=== PATIENT | female | born 1980 | race Caucasian/White ===

== ENCOUNTER 2020-01-01 15:32 | Emergency (ER) | payer MEDICAID, SELFPAY ==
[2020-01-01 15:36] VITALS: BP 115/65; PULSE 101; RESP 18; TEMP 37; O2SAT 98; BMI 21.2
--- NOTE | 2020-01-01 16:11 | CA_ITS ---
APPROVED REPORT Left Lower Extremity Venous Study for DVT. Host/Hostess Head: TRACIE Indications Lower Extremity Pain: Lower Extremity Edema: Left Current Smoker LLE swelling. Patient states that her left leg began swelling several days ago. Yesterday (12/31/19) patient stepped on a pair of tweezers that caused a laceration to the left foot with blood present. She states the swelling in the leg has increased since this injury. Risk Factors Current Smoker Vein Imaging CFV (L): compressive, spontaneous, phasic, augmentation FEM (L): compressive, spontaneous, phasic, augmentation POP (L): compressive, spontaneous, phasic, augmentation PTV (L): Compressible GSV (L): compressive, spontaneous, phasic, augmentation SSV (L): Compressible Peroneals (L):Compressible GAS (L): Compressible Conclusion No evidence of DVT or superficial thrombophlebitis in the veins scanned of the left lower extremity. Enlarged groin lymph nodes noted incidentally. Electronically signed by : Jerardo Castle MD 01/02/2020 18:29:02
--- NOTE | 2020-01-01 16:16 | XR_ITS ---
PROCEDURE: XR FOOT LT 2V CLINICAL INDICATION: trauma, swelling Pain and swelling COMPARISON: No exams were available for comparison FINDINGS: No fracture or dislocation. No lytic or blastic change. There is normal mineralization. The joint spaces are well-preserved. No significant degenerative/arthritic changes. No erosive changes evident. Other findings:Mild soft tissue swelling. No radiopaque foreign body IMPRESSION: Mild soft tissue swelling otherwise negative Dictated by: Jerardo Castle MD 01/02/2020 08:34 Electronically signed by Jerardo Castle MD in [place] 01/02/2020 08:34
--- NOTE | 2020-01-01 16:22 | HMH.EDGENADL ---
ED Disposition Clinical Impression: Cellulitis of foot, left, Puncture wound Disposition: Home, Self-Care Condition on Discharge: Good Instructions: DI for Cellulitis -- Adult Additional Instructions: You have been evaluated for pain and swelling to your left leg, diagnosed with cellulitis. Please take Keflex as prescribed. Take Tylenol and ibuprofen for pain. Follow-up with your primary care doctor this week. Follow-up for results of syphilis and gonorrhea testing. Return to the emergency department if you have new or worsening symptoms, worsening pain, swelling, fevers, chills. Prescriptions: cephALEXin [Cephalexin 500mg Tab] 500 mg PO QID 7 Days #28 tab Prescription Printed Referrals: Provider,MD Delphine [Primary Care Provider] - Isaak Garcia MD [Staff Physician] - Time of Disposition: 18:07 - Critical Care Critical Care Time: No Attestation: On 01/01/20, the high probability of a clinically significant, sudden or life threatening deterioration of the following system(s) required my full and direct attention, intervention and personal management. The time I documented below is in addition to time spent performing reported procedures but includes the following listed in this critical care notation. Medical Decision Making - Alexis Inquiry Pt receiving controlled substance: No Vital Signs: 01/01/20 15:36 01/01/20 18:58 Temperature 98.6 F 98.6 F Temperature Source Oral Oral Pulse Rate 100 H Pulse Rate [Right Radial] 101 H Respiratory Rate 18 18 Blood Pressure 113/73 Blood Pressure [Right Arm] 115/65 Blood Pressure Mean [Right Arm] 81 Blood Pressure Source Automatic Cuff Blood Pressure Source [Right Arm] Automatic Cuff Blood Pressure Position Sitting Blood Pressure Position [Right Arm] Sitting 02 Sat by Pulse Oximetry 98 Oxygen Delivery Method Room Air Room Air - Lab Data Lab Results 01/01/20 16:44: WBC 6.3, RBC 3.77 L, Hgb 12.1 L, Hct 36.2 L, MCV 96.2, MCH 32.2 H, MCHC 33.5, RDW 14.8, Plt Count 230, MPV 8.7, Neut % (Auto) 51.2, Lymph % (Auto) 33.8, Taylor % (Auto) 5.9, Eos % (Auto) 8.6, Baso % (Auto) 0.4, Neut # (Auto) 3.2, Lymph # (Auto) 2.1, Taylor # (Auto) 0.4, Eos # (Auto) 0.5 H, Baso # (Auto) 0.0 01/01/20 16:44: C-Reactive Protein 22.9 H 01/01/20 17:14: Urine Color Yellow, Urine Appearance Clear, Urine pH 6.0, Ur Specific Joshua 1.020, Urine Protein Negative, Urine Glucose (UA) Negative, Urine Ketones Trace, Urine Blood Negative, Urine Nitrate Negative, Urine Bilirubin Negative, Urine Urobilinogen 0.2, Ur Leukocyte Esterase Negative, Urine WBC 3-5, Ur Squamous Epith Cells 5-10, Urine Bacteria Trace 01/01/20 17:14: Urine HCG, Qual Negative Result diagrams: 01/01/20 16:44 Orders (Tests/Meds): ED MEDICATIONS Discontinued Medications Generic Name Dose Route Start Last Admin Trade Name Freq PRN Reason Stop Dose Admin Tetanus/Reduced Diphtheria/Acell Pertussis 0.5 ml 01/01/20 16:29 01/01/20 17:48 Adacel Tdap 0.5ml Syringe IM 01/01/20 16:30 0.5 ml .ONCE ONE Administration ORDERS Category Date Time Status Foot XR left 2 views [XR foot LT 2V] Stat Exams 01/01/20 16:16 Taken Treponema pallidum Antibodies Routine Lab 01/01/20 16:44 Received Medical Decision Narrative: In summary this is a 39-year-old female presenting to the emergency department with uniform swelling to her left foot, pain, swelling. She has a puncture wound to the bottom of the foot, concerning for a soft tissue injury and now infection. I also concern for osteomyelitis. Given that her swelling started before the injury I also have concern for DVT. Plan to obtain CBC, CRP, x-ray of the left foot, DVT ultrasound of the left lower extremity. Given that patient has lesions and her partner does as well, will screen for gonorrhea and secondary syphilis. Tetanus updated. Initial laboratory results remarkable for white count of 11. CRP elevated at 22. Other laboratory results are gen
--- NOTE | 2020-01-01 16:52 | PC.NURSE ---
CV lab staff at for doppler
--- NOTE | 2020-01-01 17:04 | PC.NURSE ---
Pt to rad.
[2020-01-01 17:08] LABS: Basophils % 0.4 % (0.1-2.0); Eosinophils # 0.5 K/mm3 (0.0-0.4); Eosinophils % 8.6 % (0.1-12.0); Hematocrit 36.2 % (37.0-47.0); Hemoglobin 12.1 g/dL (12.2-16.2); Lymphocytes # 2.1 K/mm3 (0.7-4.5); Lymphocytes % 33.8 % (10-50); Mean Corpuscular HGB Conc 33.5 g/dL (31.8-35.4); Mean Corpuscular Hemoglobin 32.2 pg (27.0-31.2); Mean Corpuscular Volume 96.2 fl (81-99); Mean Platelet Volume 8.7 fl (7.4-10.4); Monocytes # 0.4 K/mm3 (0.1-1.0); Monocytes % 5.9 % (1.7-9.3); Neutrophils # 3.2 K/mm3 (1.8-7.8); Neutrophils % 51.2 % (37.0-80.0); Platelet Count 230 K/mm3 (142-424); Red Blood Count 3.77 M/mm3 (4.20-5.40); Red Cell Distribution Width 14.8 % (11.5-17.5); White Blood Count 6.3 K/mm3 (4.8-10.8)
[2020-01-01 17:16] LABS: C-Reactive Protein 22.9 mg/L (0-4)
[2020-01-01 17:19] LABS: Microscopic, Urine URINE MICROSCOPIC (MICROSCOPIC)
[2020-01-01 17:22] LABS: Appearance,Urine CLEAR (Clear); Bilirubin,Urine Negative (Negative); Blood, Urine Negative (Negative); Color,Urine YELLOW (Yellow); Glucose,Urine (UA) Negative (Negative); Ketones,Urine TRACE (Negative); Leukocyte Esterase,Urine Negative (Negative); Nitrate,Urine Negative (Negative); Protein,Urine Negative (Negative); Urobilinogen,Urine 0.2 EU/dl (0.2)
[2020-01-01 17:25] LABS: Urine Pregnancy, HCG Qual. Negative (Negative)
[2020-01-01 17:39] LABS: Bacteria,Urine Trace /lpf
[2020-01-01 18:58] VITALS: BP 113/73; PULSE 100; RESP 18; TEMP 37; O2SAT 100
[2020-01-03 17:10] LABS: Treponema pallidum Antibodies Non Reactive (Non Reactive)
[2020-01-07 10:36] LABS: Neisseria gonorrhoeae, NAA Negative (Negative)
== END 2020-01-01 18:58 | disposition home or self-care (01) ==
PROVIDERS: Emergency Provider Emergency Medicine
DX: L03.116 Cellulitis of left lower limb (principal); F17.210 Nicotine dependence, cigarettes, uncomplicated
CPT/HCPCS: 73620; 81001; 81025; 85025; 86140; 86780; 87491; 87591; 90471; 90715; 93971; 99283

== ENCOUNTER 2020-10-09 19:19 | Emergency (ER) | payer MEDICAID, SELFPAY ==
[2020-10-09 19:14] VITALS: BP 141/98; PULSE 89; RESP 16; TEMP 36.7; O2SAT 100
--- NOTE | 2020-10-09 19:45 | HMH.EDOD ---
ED Disposition Clinical Impression: Heroin overdose Disposition: Still a Patient Condition on Discharge: Good Referrals: PCP,No [Primary Care Provider] - - Critical Care Critical Care Time: No Attestation: On 10/09/20, the high probability of a clinically significant, sudden or life threatening deterioration of the following system(s) required my full and direct attention, intervention and personal management. The time I documented below is in addition to time spent performing reported procedures but includes the following listed in this critical care notation. Medical Decision Making - Medical Records Medical records reviewed: Yes: I reviewed the patient's medical records. - Alexis Inquiry Pt receiving controlled substance: No Vital Signs: 10/09/20 19:14 Temperature 98.0 F Temperature Source Oral Pulse Rate [Left Radial] 89 Respiratory Rate 16 Blood Pressure [Right Arm] 141/98 H Blood Pressure Mean [Right Arm] 112 Blood Pressure Source [Right Arm] Automatic Cuff Blood Pressure Position [Right Arm] Supine 02 Sat by Pulse Oximetry 100 Oxygen Delivery Method Room Air Medical Decision Narrative: 39-year-old female with heroin overdose tonight. It is now immediately resolved after 2 mg of Narcan. She is awake and alert with normal neurological exam sitting comfortably in the exam room. No other concern at this point that she use anything besides heroin. She arrived just before shift change plan to observe her for an hour and then discharge her home Overdose HPI - General Chief Complaint: Overdose Stated Complaint: OD Time Seen by Provider: 10/09/20 19:20 Mode of Arrival: EMS Limitations: No Limitations Description of Symptoms (Recalled from ER Triage Doc. by RN): Per EMS pt was given 2mg carcan on sight and pt became alert. She states she used heroin by injection. She has no complaints at this time. A&Ox4. - History of Present Illness HPI Narrative: 89-year-old female used heroin tonight. EMS said they arrived and she was initially unresponsive however after 2 mg of Narcan she awoke immediately and she has been having alert since then. No chest pain abdominal pain nausea vomiting or any other concerns. At this point her main concern is that she needs to find her so she wants to call the police to do that. She denies using any other medication besides heroin tonight - Related Data Home Medications Medication Instructions Recorded Confirmed No Known Home Medications 10/09/20 10/09/20 Allergies Allergy/AdvReac Type Severity Reaction Status Date / Time NO KNOWN ALLERGIES Allergy Uncoded 07/11/17 15:08 [facility] History - Hepatitis A Screen Drug use history?: Yes High risk sexual behaviors?: No History of sexually transmitted infection?: No Currently employed?: No Childcare worker?: No Do you have indoor plumbing?: Yes Do you have electricity?: Yes Attestation statement:: This patient has been screened for Hepatitis A risk factors. Medical History: Denies:: Diabetes Mellitus Type 1, Diabetes Mellitus Type 2 - Social History Smoking Status: Current every day smoker # Packs/Day (cigarettes): 1 Alcohol Intake: never Occupational Status: unemployed ROS Obtained: Yes All systems reviewed & no additional complaints - Constitutional Constitutional: Denies body ache, Denies chills, Denies fever(s) - Eyes Eyes: Denies blurry vision - ENT Ears, Nose, Mouth, and Throat: Denies dizziness - Cardiovascular Cardiovascular: Denies chest pain - Respiratory Respiratory: Denies shortness of breath - Gastrointestinal Gastrointestingal: Denies: abdominal pain - Musculoskeletal Musculoskeletal: Denies abnormal gait, Denies muscle cramps - Integumentary/Breasts Skin/Breast: Denies rash - Neurologic Neurologic: Denies abnormal gait, Denies numbness Physical Exam - General General appearance: alert, in no apparent distress - Head Head exam: atraumatic
[2020-10-09 19:51] VITALS: BP 137/95; PULSE 76; RESP 16; TEMP 36.7; O2SAT 99
== END 2020-10-09 19:54 | disposition left against medical advice (07) ==
PROVIDERS: Emergency Provider Emergency Medicine
DX: T40.1X1A Poisoning by heroin, accidental (unintentional), initial encounter (principal)
CPT/HCPCS: 99281

== ENCOUNTER 2023-01-07 11:27 | Emergency (ER) | payer MEDICAID, SELFPAY ==
[2023-01-07 11:28] VITALS: BP 108/61; PULSE 79; RESP 16; TEMP 37; O2SAT 98; BMI 24.2
[2023-01-07 11:35] VITALS: BP 108/61; PULSE 76; RESP 16; O2SAT 96
--- NOTE | 2023-01-07 11:40 | HMH.EDGENADL ---
Discharge Plan Disposition Patient Disposition: Home, Self-Care Condition: Good Prescriptions Prescriptions: No Action No Known Home Medications Referrals Follow up/Referrals: Isaak Garcia MD [Staff Physician] - See instructions Provider,MD Delphine [Primary Care Provider] - See instructions Activity Restrictions/Add. Instructions Additional Instructions/Restrictions: You have been evaluated for vaginal discharge, concern for sexually transmitted infections. We have sent swabs for the most common types of infections. Please follow-up with your primary care doctor for the results. Avoid sexual intercourse until you and partners are tested and treated. Return to the emergency department at once for any new or worsening symptoms Clinical Impressions Clinical Impression: Vaginal discharge, Encounter for assessment of STD exposure Discharge ED Provider: Daphne Ferrara Adult HPI General Chief complaint: Urogenital-Female Stated complaint: wants to be tested for STD Time Seen by Provider: 01/07/23 11:32 History of Present Illness HPI narrative: 42-year-old female presenting to the emergency department with vaginal discharge, concern for sexually transmitted infections. Symptoms started 2 to 3 days ago. She had itching, discomfort in her vaginal area. She noticed whitish discharge. Does not have a particular smell. She feels like her genital area is irritated. Feels like she may have a rash. She was sexually active about 1 month ago. Denies recent sexual intercourse. She was tested for sexually transmitted infections about 6 months ago. She has never been diagnosed with gonorrhea, chlamydia, HIV, syphilis, any other sexually transmitted infections. She denies concern for Related Data Home Medications Medication Instructions Recorded Confirmed No Known Home Medications 10/09/20 10/09/20 Allergies Allergy/AdvReac Type Severity Reaction Status Date / Time NO KNOWN ALLERGIES Allergy Uncoded 07/11/17 15:08 [facility] Disclaimer: The information contained in this section may have been updated after the patient was seen, as this information can be updated by other users. Social History Smoking Status: Current every day smoker alcohol intake: never current occupational status: unemployed Travel in the last 8 weeks: None ROS Obtained: Yes All systems reviewed & no additional complaints except as documented Constitutional Constitutional: Denies fatigue, Denies fever(s), Denies headache(s) and Denies weakness ENT Ears, Nose, Mouth, and Throat: Denies headache(s) Gastrointestinal Gastrointestingal: Denies abdominal pain, nausea or vomiting Genitourinary Female Genitourinary: Reports dysuria, Denies hematuria, Reports vaginal discharge and Reports vaginal odor Integumentary/Breasts Skin/Breast: Denies redness and Denies rash Neurologic Neurologic: Denies headache(s) and Denies weakness Endocrine Endocrine: Denies fatigue Physical Exam General General appearance: alert and in no apparent distress Eye Eye exam: Present normal appearance; Absent conjunctival redness Respiratory Respiratory exam: Present normal lung sounds bilaterally; Absent respiratory distress or wheezes Cardiovascular Cardiovascular exam: Present regular rate and normal rhythm Abdominal Exam Abdominal exam: Present soft; Absent distention or tenderness Neurological Exam Neurological exam: Present alert and oriented X3 Skin Skin exam: Present warm and dry Medical Decision Making Medical Records Medical records reviewed: Yes I reviewed the patient's medical records. Alexis Inquiry Pt receiving controlled substance: No Vital Signs: 01/07/23 11:28 01/07/23 11:35 Temperature 98.6 F Temperature Source Oral Pulse Rate 76 Pulse Rate [Right] 79 Respiratory Rate 16 16 Blood Pressure 108/61 L Blood Pressure [Right Arm] 108/61 L Blood Pressure Mean 71 Blood Pressure Mean [Ri
[2023-01-07 11:52] LABS: Microscopic, Urine URINE MICROSCOPIC (MICROSCOPIC)
[2023-01-07 11:56] LABS: Appearance,Urine CLEAR (Clear); Blood, Urine Negative (Negative); Color,Urine YELLOW (Yellow); Glucose,Urine (UA) Negative (Negative); Ketones,Urine Negative (Negative); Leukocyte Esterase,Urine 1+ (Negative); Nitrate,Urine Negative (Negative); PH,Urine 6.5 (5.0-8.5); Protein,Urine 1+ (Negative); Specific Gravity, Urine 1.025 (1.005-1.030)
[2023-01-07 12:04] LABS: Bilirubin,Urine Negative (Negative)
[2023-01-07 12:20] LABS: Bacteria,Urine 4+ /lpf
--- NOTE | 2023-01-07 12:47 | PC.NURSE ---
MD at bedside performing pelvic exam. NCT present.
[2023-01-07 12:57] LABS: Urine Pregnancy, HCG Qual. Negative (Negative)
[2023-01-07 13:23] VITALS: BP 101/70; PULSE 73; RESP 18; TEMP 37; O2SAT 96
[2023-01-09 21:08] LABS: Neisseria gonorrhoeae, NAA Negative (Negative)
== END 2023-01-07 13:22 | disposition home or self-care (01) ==
PROVIDERS: Emergency Provider Emergency Medicine
DX: N89.8 Other specified noninflammatory disorders of vagina (principal); F17.200 Nicotine dependence, unspecified, uncomplicated
CPT/HCPCS: 81001; 81025; 87086; 87491; 87591; 99284

== ENCOUNTER → 2023-01-25 13:37 | Outpatient (CLI) | payer MEDICAID, SELFPAY ==
[2023-01-25 13:01] LABS: Basophils % 0.8 % (0.1-2.0); Eosinophils # 0.2 K/mm3 (0.0-0.4); Eosinophils % 2.8 % (0.1-12.0); Hematocrit 43.2 % (37.0-47.0); Hemoglobin 14.4 g/dL (12.2-16.2); Lymphocytes # 1.9 K/mm3 (0.7-4.5); Mean Corpuscular HGB Conc 33.3 g/dL (31.8-35.4); Mean Corpuscular Hemoglobin 29.9 pg (27.0-31.2); Mean Corpuscular Volume 89.9 fl (81-99); Mean Platelet Volume 10.7 fl (7.4-10.4); Monocytes # 0.4 K/mm3 (0.1-1.0); Monocytes % 7.6 % (1.7-9.3); Neutrophils % 54.7 % (37.0-80.0); Platelet Count 236 K/mm3 (142-424); Red Blood Count 4.81 M/mm3 (4.20-5.40); Red Cell Distribution Width 13.4 % (11.5-17.5); White Blood Count 5.5 K/mm3 (4.8-10.8)
[2023-01-25 13:48] LABS: Alanine Aminotransferase 23 U/L (12-78); Albumin Level 4.5 g/dl (3.5-5.0); Albumin/Globulin Ratio 1.5 (1.1-1.8); Alkaline Phosphatase 55 U/L (38-126); Anion Gap 15.3 mEq/L (5-15); Aspartate Amino Transferase 32 U/L (14-36); Bilirubin,Total 0.3 mg/dl (0.2-1.3); Blood Urea Nitrogen 10 mg/dl (7-17); Calcium 9.5 mg/dl (8.4-10.2); Carbon Dioxide 25 mmol/L (22.0-30.0); Chloride 103 mmol/L (98-107); Chol/HDL Ratio 4.6 (1-3.5); Cholesterol 211 mg/dl (140-200); Estimated Glomerular Filt Rate 69 ml/min (>60); GFR (African American) 84 ML/MIN (>60); Globulin 3.1 g/dL (1.3-3.2); Glucose 79 mg/dl (74-100); HDL Cholesterol 46 mg/dl (40-60); Potassium 4.3 mmoL/L (3.5-5.1); Sodium 139 mmol/L (136-145); Total Protein,Serum 7.6 g/dl (6.3-8.2); Triglycerides 132 mg/dl (30-150); VLDL Cholesterol 26 mg/dL (0-40)
[2023-01-25 13:59] LABS: Direct LDL Cholesterol 114.59 mg/dL (100-129)
[2023-01-25 14:04] LABS: 25-OH Vitamin D, Total 30.5 ng/mL (30-100); T4 (Thyroxine) 9.5 ug/dl (5.53-11.0)
[2023-01-25 14:18] LABS: Thyroid Stimulating Hormone 0.86 uIU/mL (0.465-4.68)
== END ==
PROVIDERS: PCP Emergency Medicine; Visit Provider Emergency Medicine
DX: Z86.19 Personal history of other infectious and parasitic diseases (principal); Z79.899 Other long term (current) drug therapy
CPT/HCPCS: 80053; 80061; 82306; 84436; 84443; 85025; 87522; 87902

== ENCOUNTER → 2023-06-07 08:53 | Outpatient (CLI) | payer MEDICAID, SELFPAY ==
[2023-06-07 20:28] LABS: Alanine Aminotransferase 17 U/L (12-78); Albumin Level 4.2 g/dl (3.5-5.0); Albumin/Globulin Ratio 1.4 (1.1-1.8); Alkaline Phosphatase 52 U/L (38-126); Anion Gap 15.7 mEq/L (5-15); Aspartate Amino Transferase 32 U/L (14-36); Bilirubin,Total 0.3 mg/dl (0.2-1.3); Blood Urea Nitrogen 9 mg/dl (7-17); Calcium 9.5 mg/dl (8.4-10.2); Carbon Dioxide 24 mmol/L (22.0-30.0); Chloride 103 mmol/L (98-107); Chol/HDL Ratio 4.5 (1-3.5); Cholesterol 192 mg/dl (140-200); Estimated Glomerular Filt Rate 93 ml/min (>60); GFR (African American) 112 ML/MIN (>60); Globulin 3.1 g/dL (1.3-3.2); Glucose 73 mg/dl (74-100); HDL Cholesterol 43 mg/dl (40-60); Potassium 4.7 mmoL/L (3.5-5.1); Sodium 138 mmol/L (136-145); Total Protein,Serum 7.3 g/dl (6.3-8.2); Triglycerides 108 mg/dl (30-150); VLDL Cholesterol 22 mg/dL (0-40)
[2023-06-07 20:40] LABS: Direct LDL Cholesterol 118.72 mg/dL (100-129)
[2023-06-07 20:49] LABS: 25-OH Vitamin D, Total 26.4 ng/mL (30-100)
[2023-06-07 20:54] LABS: HCG,Quantitative < 2 mIU/ml (0-5.42)
[2023-06-07 20:58] LABS: Thyroid Stimulating Hormone 0.56 uIU/mL (0.465-4.68)
[2023-06-07 21:17] LABS: Vitamin B12 494 pg/mL (239-931)
[2023-06-07 22:04] LABS: Basophils # 0.1 K/mm3 (0-0.2); Basophils % 0.7 % (0.1-2.0); Eosinophils # 0.1 K/mm3 (0.0-0.4); Hematocrit 42.5 % (37.0-47.0); Hemoglobin 14.6 g/dL (12.2-16.2); Lymphocytes # 2.4 K/mm3 (0.7-4.5); Lymphocytes % 35.7 % (10-50); Mean Corpuscular HGB Conc 34.4 g/dL (31.8-35.4); Mean Corpuscular Hemoglobin 32.6 pg (27.0-31.2); Mean Corpuscular Volume 94.9 fl (81-99); Mean Platelet Volume 11.8 fl (7.4-10.4); Monocytes # 0.3 K/mm3 (0.1-1.0); Monocytes % 5.1 % (1.7-9.3); Neutrophils # 3.7 K/mm3 (1.8-7.8); Neutrophils % 56.5 % (37.0-80.0); Platelet Count 213 K/mm3 (142-424); Red Blood Count 4.48 M/mm3 (4.20-5.40); Red Cell Distribution Width 13.7 % (11.5-17.5); White Blood Count 6.6 K/mm3 (4.8-10.8)
[2023-06-09 12:19] LABS: Estradiol 17.1 pg/mL (.); FSH 5.5 mIU/mL (.); LH 1.1 mIU/mL (.); Testosterone,Total <3 ng/dL (8-60)
[2023-06-12 13:30] LABS: Estrogen 53 pg/mL (.)
[2023-06-13 22:06] LABS: Anti Mullerian Hormone (AMH) 1.25
== END ==
PROVIDERS: PCP Emergency Medicine; Visit Provider Physician Assistant
DX: N92.6 Irregular menstruation, unspecified (principal); E55.9 Vitamin D deficiency, unspecified; Z68.21 Body mass index [BMI] 21.0-21.9, adult
CPT/HCPCS: 80053; 80061; 82306; 82397; 82607; 82670; 82672; 83001; 83002; 84403; 84443; 84702; 85025

== ENCOUNTER 2024-06-13 15:28 | Outpatient (CLI) | payer MEDICAID, SELFPAY ==
[2024-06-13 16:08] LABS: Basophils # 0.1 K/mm3 (0-0.2); Basophils % 1.7 % (0.1-2.0); Eosinophils # 0.1 K/mm3 (0.0-0.4); Eosinophils % 1.1 % (0.1-12.0); Hematocrit 44.5 % (37.0-47.0); Hemoglobin 15.5 g/dL (12.2-16.2); Lymphocytes # 2.5 K/mm3 (0.7-4.5); Mean Corpuscular HGB Conc 34.7 g/dL (31.8-35.4); Mean Corpuscular Hemoglobin 31.4 pg (27.0-31.2); Mean Corpuscular Volume 90.5 fl (81-99); Mean Platelet Volume 9.3 fl (7.4-10.4); Monocytes # 0.3 K/mm3 (0.1-1.0); Monocytes % 4.8 % (1.7-9.3); Neutrophils # 3.9 K/mm3 (1.8-7.8); Neutrophils % 56.4 % (37.0-80.0); Platelet Count 211 K/mm3 (142-424); Red Blood Count 4.92 M/mm3 (4.20-5.40); Red Cell Distribution Width 13.5 % (11.5-17.5); White Blood Count 6.9 K/mm3 (4.8-10.8)
[2024-06-13 16:27] LABS: Albumin Level 4.8 g/dl (3.5-5.0); Chloride 103 mmol/L (98-107); Potassium 4.8 mmoL/L (3.5-5.1); Sodium 138 mmol/L (136-145)
[2024-06-13 16:30] LABS: Alanine Aminotransferase 18 U/L (12-78); Albumin/Globulin Ratio 1.5 (1.1-1.8); Alkaline Phosphatase 65 U/L (38-126); Anion Gap 13.8 mEq/L (5-15); Aspartate Amino Transferase 32 U/L (14-36); Bilirubin,Total 0.5 mg/dl (0.2-1.3); Blood Urea Nitrogen 16 mg/dl (7-17); Calcium 9.8 mg/dl (8.4-10.2); Carbon Dioxide 26 mmol/L (22.0-30.0); Cholesterol 194 mg/dl (140-200); Estimated Glomerular Filt Rate 92 ml/min (>60); GFR (African American) 112 ML/MIN (>60); Globulin 3.2 g/dL (1.3-3.2); Glucose 93 mg/dl (74-100); HDL Cholesterol 65 mg/dl (40-60); Triglycerides 101 mg/dl (30-150); VLDL Cholesterol 20 mg/dL (0-40)
[2024-06-13 16:45] LABS: Direct LDL Cholesterol 108.22 mg/dL (100-129)
[2024-06-13 16:48] LABS: Triiodothryronine (T3) Uptake 34 % (23.5-40.5)
[2024-06-13 17:26] LABS: HIV (1&2) Antibody Rapid NONREACTIVE (NONREACTIVE)
[2024-06-13 17:54] LABS: Free Thyroxine Index 3.4 ug/dL (5.93-13.13); T4 (Thyroxine) 9.9 ug/dl (5.53-11.0)
[2024-06-13 17:59] LABS: 25-OH Vitamin D, Total 46.1 ng/mL (30-100)
[2024-06-13 18:06] LABS: Hemoglobin A1C 5.1 % (4.0-6.0)
[2024-06-13 18:08] LABS: Thyroid Stimulating Hormone 0.91 uIU/mL (0.465-4.68)
[2024-06-17 14:11] LABS: HBsAg Screen Negative (Negative); HCV Ab Reactive (Non Reactive); Hep A Ab, IGM Negative (Negative); Hep B Core Ab, IgM Negative (Negative)
== END 2024-06-13 23:59 | disposition home or self-care (01) ==
LOC: LAB 15:29
PROVIDERS: PCP Family Medicine; Visit Provider Family Medicine
DX: Z13.9 Encounter for screening, unspecified (principal)
CPT/HCPCS: 36415; 80050; 80053; 80061; 80074; 82306; 83036; 84436; 84443; 84479; 85025; 87389

== ENCOUNTER 2024-07-19 09:40 | Emergency (ER) | payer MEDICAID, SELFPAY ==
[2024-07-19 09:41] VITALS: BP 132/73; PULSE 82; RESP 18; TEMP 36.6; O2SAT 98; BMI 17.7
[2024-07-19] MEDS: IPRATROPIUM/ALBUTEROL 3 ML NEB 9 ML IH (09:50)
[2024-07-19] MEDS: DEXAMETHASONE 4MG TABLET 10 MG PO (09:50)
[2024-07-19 09:52] LABS: Coronavirus 19, PCR Not Detected (NotDetected); Influenza A, PCR Not Detected (NotDetected); Influenza B, PCR Not Detected (NotDetected)
--- NOTE | 2024-07-19 09:59 | PC.NURSE ---
DR GUADARRAMA AT BEDSIDE
[2024-07-19 10:00] VITALS: BP 129/78; PULSE 84; RESP 18; O2SAT 100
--- NOTE | 2024-07-19 10:03 | XR_ITS ---
FINAL REPORT CLINICAL HISTORY: Shortness of breath, productive cough COMPARISON: None FINDINGS: The heart size is normal. The mediastinum is normal. There is no focal infiltrate or edema. There are no pleural effusions. There is no pneumothorax. There is no osseous abnormality. IMPRESSION: No acute cardiopulmonary process Reviewed, Interpreted and Dictated by Rehan Landeros MD Transcribed by Rekha Cole Authenticated and [facility]
--- NOTE | 2024-07-19 10:12 | HMH.EDGENADL ---
Discharge Plan Disposition Patient Disposition: Home, Self-Care Prescriptions Prescriptions: New prednisone 20 mg tablet 40 mg PO DAILY 5 Days Qty: 10 0RF doxycycline monohydrate 100 mg capsule 100 mg PO BID 5 Days Qty: 10 0RF nicotine 21 mg/24 hr patch 24 hour 1 patch transdermal DAILY Qty: 28 3RF No Action ondansetron HCl 4 mg tablet 4 mg PO TID PRN (Reason: nausea and vomiting) Qty: 30 0RF buprenorphine-naloxone 8-2 mg tablet, sublingual 1 tab sublingual DAILY Referrals Follow up/Referrals: Blossom Bills APRN [Primary Care Provider] - See instructions Kavon Deshpande MD [Staff Physician] - See instructions Activity Restrictions/Add. Instructions Additional Instructions/Restrictions: Call your family doctor to establish care for this visit to the emergency department and schedule follow-up within 48 hours to ensure improvement. If you have any worsening of your condition or any other concerning signs or symptoms, return to the emergency department or your primary care doctor for further evaluation. Doxycycline and prednisone for the next [address] Deshpande information here to follow-up with PCP. Nicotine patches have been sent to the pharmacy as well. [facility] academic support director will reach out to you to help with counseling and guidance on tobacco cessation. Clinical Impressions Clinical Impression: Acute exacerbation of chronic obstructive pulmonary disease, Stimulant use disorder Stand Alone Forms Stand Alone Forms: Work/School Release Print Language Print Language: Uzbek Discharge ED Provider: Darwin Dominguez General Adult HPI General Chief complaint: Upper Respiratory Infection Stated complaint: diff breathing, body aches, cough, sweats Time Seen by Provider: 07/19/24 09:47 Mode of Arrival: Ambulatory Source of Information: Patient Limitations: No Limitations Description of Symptoms (Recalled from ER Triage Doc. by RN): PT C/O 4 DAYS OF COUGH, FEVER, BODYACHES, CHILLS AND SHORTNESS OF BREATH History of Present Illness HPI narrative: Please note that above description of symptoms, in this electronic medical record under categorization of recalled from ER triage doctor by RN are reflective of an initial nursing assessment, however, is not reflective of my full history and physical exam that was personally taken and clarified. Consequentially, this preceding description of symptoms, which may include the patient's categorized chief complaint in the EMR, do not reflect my personal clinical impression, and the ultimate description of history of present illness and patient stated complaints should be deferred to this section of the note. Unless stated otherwise or congruent with this section of the note, additional signs, symptoms, or incongruence should be interpreted as inaccurate with my clinical impression. Related Data Home Medications ?Medication ?Instructions ?Recorded ?Confirmed buprenorphine 8 mg-naloxone 2 mg 1 tab sublingual DAILY 01/25/23 06/13/24 sublingual tablet Previous Rx's ?Medication ?Instructions ?Recorded ondansetron HCl 4 mg tablet 4 mg PO TID PRN nausea and 06/13/24 vomiting #30 tabs doxycycline monohydrate 100 mg 100 mg PO BID 5 days #10 caps 07/19/24 capsule nicotine 21 mg/24 hr daily 1 patch transdermal DAILY #28 ea 07/19/24 transdermal patch prednisone 20 mg tablet 40 mg (2 x 20 mg) PO DAILY 5 days 07/19/24 #10 tabs Allergies Allergy/AdvReac Type Severity Reaction Status Date / Time NO KNOWN ALLERGIES Allergy Unknown Uncoded 06/13/24 14:45 [facility] Disclaimer: The information contained in this section may have been updated after the patient was seen, as this information can be updated by other users. Medical History History of hepatitis C Substance abuse Social History (Updated 06/14/24 @ 14:00 by Blossom Bills APRN) Smoking Status: Current every day smoker alcohol intake: never substance use type: former substance user, heroin, amphetamines, opiates and methamphetamine current occupational status: employed and unemployed Travel in the last 8 weeks: None Have you lived/traveled outside US in past 30 days?: No Contact w/someone who lives/traveled outside US past 30 days?: No Exposure to someone with infectious disease in past 14 days?: No Do you have a fever (greater than 100.4 F or 38 C)?: No Have you tested positive for COVID-19: No Exposed to someone with COVID-19 in past 14 days?: No Do you have a sore throat?: No Do you have a cough?: Yes Do you have any weakness?: No Do you have any diarrhea?: No Are you experiencing any unusual bleeding?: No Do you have any muscle aches/pain?: Yes Do you have any abdominal pain?: No Are you experiencing loss of taste or smell?: No Other Medical History Have you received the Flu Vaccine for this season: No Have you received the Pneumonia Vaccine: No ROS Obtained: Yes All systems reviewed & no additional complaints except as documented Physical Exam General General appearance: alert Head Head exam: atraumatic and normocephalic Eye Eye exam: Present normal appearance, PERRL and EOMI Neck Neck exam: Present normal inspection, full ROM and trachea midline Respiratory Respiratory exam: Present respiratory distress (Mild), wheezes, accessory muscle use and prolonged expiratory phase; Absent stridor Cardiovascular Cardiovascular exam: Present regular rate, normal rhythm and other (Pulses equal symmetric in upper and lower extremities) Abdominal Exam Abdominal exam: Present soft; Absent distention, tenderness or pulsatile mass Extremities Exam Extremities exam: Absent edema Neurological Exam Neurological exam: Present alert, oriented X3 and CN II-XII intact; Absent motor sensory deficit Skin Skin exam: Present warm and dry; Absent diaphoresis or erythema Medical Decision Making Medical Records Medical records reviewed: Yes I reviewed the patient's medical records. Screening: Per USPSTF and CDC recommendations, given the prevalence of disease in our region, it is our hospital?s policy to screen for HIV and viral Hepatitis for all patients aged 18 and over and those with ongoing risk factors. Alexis Inquiry Pt receiving controlled substance: No Alexis was queried for this patient: No Vital Signs: 07/19/24 09:41 07/19/24 10:00 07/19/24 10:30 Temperature 97.9 F Temperature Source Oral Pulse Rate 84 77 Pulse Rate [Radial] 82 Respiratory Rate 18 18 16 Blood Pressure 129/78 112/69 Blood Pressure [Right Arm] 132/73 Blood Pressure Mean 91 87 Blood Pressure Mean [Right Arm] 92 Blood Pressure Source Blood Pressure Source [Right Arm] Automatic Cuff Blood Pressure Position Blood Pressure Position [Right Arm] Sitting 02 Sat by Pulse Oximetry 98 100 93 L Oxygen Delivery Method Room Air 07/19/24 11:33 Temperature 98.0 F Temperature Source Oral Pulse Rate 87 Pulse Rate [Radial] Respiratory Rate 18 Blood Pressure 105/72 L Blood Pressure [Right Arm] Blood Pressure Mean Blood Pressure Mean [Right Arm] Blood Pressure Source Automatic Cuff Blood Pressure Source [Right Arm] Blood Pressure Position Sitting Blood Pressure Position [Right Arm] 02 Sat by Pulse Oximetry Oxygen Delivery Method Room Air Lab Data Lab Results 07/19/24 09:40: SARS-CoV-2 (PCR) Not detected, Influenza A Untype (PCR) Not detected, Influenza Type B (PCR) Not detected Orders (Tests/Meds): ED MEDICATIONS Discontinued Medications Generic Name Dose Route Start Last Admin Trade Name Mila PRN Reason Stop Dose Admin Albuterol/Ipratropium 9 ml 07/19/24 09:47 07/19/24 09:50 Ipratropium/Albuterol 3 Ml Neb IH 07/19/24 09:48 9 ml ONCE ONE Administration Dexamethasone 10 mg 07/19/24 09:47 07/19/24 09:50 Dexamethasone 4mg Tablet PO 07/19/24 09:48 10 mg ONCE ONE Administration Doxycycline Hyclate 100 mg 07/19/24 11:26 07/19/24 11:28 Doxycycline Hycl 100 Mg Tablet PO 07/19/24 11:27 100 mg ONCE ONE Administration ORDERS Category Date Time Status Consult [facility] [CONS] Routine Cons 07/19/24 10:03 Active CXR --portable [XR chest portable] Stat Exams 07/19/24 10:03 Completed Rapid PCR Covid and Flu A/B Stat Lab 07/19/24 09:40 Completed Medical Decision Narrative: 43-year-old female recovering addict from opiate use disorder, current tobacco use disorder and COPD not on home oxygen presenting with cough, body aches, fevers. Patient states that the symptoms have been going on for couple days, got worse yesterday into today. Has been taking no medications for this. Having cough that is productive of thick clear sputum. Fevers, body aches. Came in for further evaluation. History was obtained via conversation with patient. On arrival, patient hemodynamically stable, alert, oriented x4, appropriate, GCS 15, moving all extremities spontaneously, pupils equal and reactive to light. Full physical exam performed and significant for 43-year-old female who is in mild respiratory distress with prolonged expiratory phase, mild tachypnea, speaking in full sentences though. Diffusely wheezy lungs without focal breath sounds, they are worse on the left posterior/inferior lung lan. Cardiac exam nontachycardic. Abdomen soft, nontender, nondistended. No lower extremity edema.. Differential includes bronchitis, pneumonia, COPD exacerbation, less likely be ACS, [place], PE, among others. Patient placed on continuous cardiac monitoring and continuous pulse ox with initial blood pressure 132/73, heart rate 82, saturation 98% on room air. Patient was given DuoNebs, Solu-Medrol for symptomatic management and correction of underlying abnormalities. Workup independently interpreted and significant for no acute consolidation on chest x-ray. Viral swab negative. See radiology read for full review of final results. On reevaluation, patient resting much more comfortably and feeling better. Breathing significantly improved. Wheezes also significantly improved. Given patient presentation, workup, history, this most likely represents mild COPD exacerbation. Antibiotics and steroids for home-going. Patient also given referral to peer support counselor. Because patient at baseline without signs or symptoms of clinical decompensation, deemed appropriate for discharge. Results were relayed to patient who voiced understanding and were agreeable to outpatient management and follow up. I discussed my clinical impression with patient and answered all questions. At this time, the evidence for any other entities in the differential is insufficient to warrant any further testing or ED observation. This was explained as well. Advisory was given that persistent or worsening symptoms require further evaluation. I confirmed the understanding of this discussion. Tool And Equipment Rental Clerk disclaimer Much of this encounter note is an electronic neonatal icu coordinator spoken language to printed text. Electronic neonatal icu coordinator of the spoken language may permit errors. Although I have reviewed the note, some errors may still exist. Critical Care Critical Care Time Critical Care Time: No
--- NOTE | 2024-07-19 10:14 | PC.NURSE ---
XR AT BEDSIDE
[2024-07-19 10:30] VITALS: BP 112/69; PULSE 77; RESP 16; O2SAT 93
[2024-07-19] MEDS: DOXYCYCLINE HYCL 100 MG TABLET PO (11:28)
[2024-07-19 11:33] VITALS: BP 105/72; PULSE 87; RESP 18; TEMP 36.7; O2SAT 98
--- NOTE | 2024-07-20 20:00 | PEERSUPPORT ---
Peer Support Note Patient Information Patient Information: DOS: 07/20/2024 ? Ps follow up via telephone. ? Pt stated she has been in recovery since 10/2020. -Graduated from [employer] 04/2024. -Presented to ED with respiratory issues. 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 -reports no use of drugs or alcohol but desires connection to recovery community. ? Current MAT/MOUD: [facility]Virtual MAT -Pt stated she does well at clinic -Has therapy monthly via telehealth -UDS via virtual, then mails in to lab -Pt allowed six months of RX, due to compliance and no failed UDS. ? Previous Treatment: Inpatient Treatment- +3x ? Support System: Work Son ? Potential Barriers: -Lack of connection to recovery meetings and groups. -Self-care -Community engagement: Pt interested in finding a denominational local and ways to be? of service in community of recovery. ? Plan of Action: Pt agrees to follow up phone calls with [facility] peer support. Ps to email list of local meetings to stay connected to recovery. Follow up with therapist to process.
== END 2024-07-19 11:35 | disposition home or self-care (01) ==
PROVIDERS: Emergency Provider Emergency Medicine; PCP Family Medicine
DX: J44.1 Chronic obstructive pulmonary disease with (acute) exacerbation (principal); F15.90 Other stimulant use, unspecified, uncomplicated; R05.9 Cough, unspecified; R50.9 Fever, unspecified; M79.10 Myalgia, unspecified site; R06.02 Shortness of breath; Z72.0 Tobacco use
CPT/HCPCS: 71045; 87636; 99283; J7620; J8540

== ENCOUNTER 2024-07-25 12:17 | Emergency (ER) | payer MEDICAID, SELFPAY ==
[2024-07-25 12:18] VITALS: BP 126/83; PULSE 82; RESP 18; TEMP 36.7; O2SAT 96; BMI 20.5
--- NOTE | 2024-07-25 12:22 | ED_ITS ---
<Statement entered by Edmund Chandler MD - 07/26/24 15:50> I was consulted by the MARTA, and we discussed the complexity of the problems being addressed. I approved the treatment and management plan for this patient's care in the emergency department, thus performing a substantive portion of the medical decision making. Edmund Chandler MD, ADONAY, FACEP Discharge Plan Disposition Patient Disposition: Home, Self-Care Condition: Good Prescriptions Prescriptions: New pantoprazole [Protonix] 40 mg tablet,delayed release (DR/EC) 40 mg PO DAILY Qty: 30 0RF No Action ondansetron HCl 4 mg tablet 4 mg PO TID PRN (Reason: nausea and vomiting) Qty: 30 0RF buprenorphine-naloxone 8-2 mg tablet, sublingual 1 tab sublingual DAILY prednisone 20 mg tablet 40 mg PO DAILY 5 Days Qty: 10 0RF doxycycline monohydrate 100 mg capsule 100 mg PO BID 5 Days Qty: 10 0RF nicotine 21 mg/24 hr patch 24 hour 1 patch transdermal DAILY Qty: 28 3RF Referrals Follow up/Referrals: Blossom Bills APRN [Primary Care Provider] - See instructions Chun Rick II, MD [Staff Physician] - See instructions Activity Restrictions/Add. Instructions Additional Instructions/Restrictions: As we discussed I am referring you to Dr. Rick for upper endoscopy. Follow- up as scheduled tomorrow with your PCP. Please follow-up with [facility] that Annalise has arranged for you for evaluation of your generalized anxiety disorder. Return to ER for any worsening signs or symptoms as needed. Clinical Impressions Clinical Impression: Epigastric abdominal pain, Stimulant use disorder, Generalized anxiety disorder, Opioid use disorder in remission Stand Alone Forms Stand Alone Forms: Work/School Release Print Language Print Language: Belarusian Discharge ED Provider: Edmund Chandler General Adult HPI General Chief complaint: Nausea/Vomiting/Diarrhea Stated complaint: cant hold down food, weakness, dairrhea Time Seen by Provider: 07/25/24 12:22 History of Present Illness HPI narrative: Patient presents for evaluation of abdominal pain and intolerance of oral intake. Patient states that she has intermittently had abdominal pain and intolerance of oral intake except liquid for about a year to 2. However the last 4 days it is hurt so bad that she is even intolerant of oral intake. She denies any nausea vomiting fever chills chest pain shortness of breath hemoptysis hematochezia melena hematemesis hematuria. Patient states that it started around the time that she started on Suboxone. Patient has been clean for over 2 years and currently holds a full-time job. She does not see anyone for anxiety and is very anxious today as well. She has no suicidal homicidal ideations or audiovisual hallucinations. Related Data Home Medications ?Medication ?Instructions ?Recorded ?Confirmed buprenorphine 8 mg-naloxone 2 mg 1 tab sublingual DAILY 01/25/23 06/13/24 sublingual tablet Previous Rx's ?Medication ?Instructions ?Recorded ondansetron HCl 4 mg tablet 4 mg PO TID PRN nausea and 06/13/24 vomiting #30 tabs doxycycline monohydrate 100 mg 100 mg PO BID 5 days #10 caps 07/19/24 capsule nicotine 21 mg/24 hr daily 1 patch transdermal DAILY #28 ea 07/19/24 transdermal patch prednisone 20 mg tablet 40 mg (2 x 20 mg) PO DAILY 5 days 07/19/24 #10 tabs pantoprazole 40 mg tablet,delayed 40 mg PO DAILY #30 tabs 07/25/24 release (Protonix) Allergies Allergy/AdvReac Type Severity Reaction Status Date / Time NO KNOWN ALLERGIES Allergy Unknown Uncoded 06/13/24 14:45 [facility] Disclaimer: The information contained in this section may have been updated after the patient was seen, as this information can be updated by other users. Medical History History of hepatitis C Substance abuse Social History (Updated 06/14/24 @ 14:00 by Blossom Bills APRN) Smoking Status: Current every day smoker alcohol intake: never substance use type: former substance user, heroin, amphetamines, opiates and methamphetamine current occupational status: employed and unemployed Travel in the last 8 weeks: None Have you lived/traveled outside US in past 30 days?: No Contact w/someone who lives/traveled outside US past 30 days?: No Exposure to someone with infectious disease in past 14 days?: No Do you have a fever (greater than 100.4 F or 38 C)?: No Have you tested positive for COVID-19: No Exposed to someone with COVID-19 in past 14 days?: No Do you have a sore throat?: No Do you have a cough?: No Do you have any weakness?: No Do you have any diarrhea?: No Are you experiencing any unusual bleeding?: No Do you have any muscle aches/pain?: No Do you have any abdominal pain?: No Are you experiencing loss of taste or smell?: No Other Medical History Have you received the Flu Vaccine for this season: No Have you received the Pneumonia Vaccine: No ROS Obtained: Yes Systems reviewed as appropriate & no additional complaints except as documented Physical Exam General General appearance: alert and anxious Respiratory Respiratory exam: Present normal lung sounds bilaterally Cardiovascular Cardiovascular exam: Present regular rate; Absent normal rhythm Neurological Exam Neurological exam: Present alert and oriented X3 Psychiatric Psychiatric exam: Present anxious Medical Decision Making Medical Records Medical records reviewed: Yes I reviewed the patient's medical records. Screening: Per USPSTF and CDC recommendations, given the prevalence of disease in our region, it is our hospital?s policy to screen for HIV and viral Hepatitis for all patients aged 18 and over and those with ongoing risk factors. Alexis Inquiry Pt receiving controlled substance: No Vital Signs: 07/25/24 12:18 07/25/24 12:35 07/25/24 14:48 Temperature 98.1 F 96 F L 97.9 F Temperature Source Oral Oral Pulse Rate 91 H 98 H Pulse Rate [Right] 82 Respiratory Rate 18 18 Blood Pressure 126/83 126/89 Blood Pressure [Right Arm] 126/83 Blood Pressure Mean [Right Arm] 97 Blood Pressure Source Automatic Cuff Blood Pressure Position Sitting 02 Sat by Pulse Oximetry 96 Oxygen Delivery Method Room Air Room Air Lab Data Lab results reviewed: Yes I reviewed the patient's lab results. Lab Results 07/25/24 13:18: WBC 9.3, RBC 5.16, Hgb 16.1, Hct 46.5, MCV 90.1, MCH 31.2, MCHC 34.6, RDW 12.3, Plt Count 301, MPV 11.5 H, Neut % (Auto) 55.3, Lymph % (Auto) 32.8, [place]verse % (Auto) 9.3, Eos % (Auto) 1.3, Baso % (Auto) 0.5, Neut # (Auto) 5.1, Lymph # (Auto) 3.1, Traverse # (Auto) 0.9, Eos # (Auto) 0.1, Baso # (Auto) 0.1 07/25/24 : Sodium 137, Potassium 4.9, Chloride 99, Carbon Dioxide 36 H, Anion Gap 6.9, BUN 24 H, Creatinine 0.70, Estimated GFR 92, Est GFR ( Amer) 112, Glucose 77, Calcium 9.7, Phosphorus 4.3, Magnesium 2.0, Total Bilirubin 0.5, AST 38 H, ALT 27, Alkaline Phosphatase 79, Total Protein 7.4, Albumin 4.1, Globulin 3.3 H, Albumin/Globulin Ratio 1.2, Lipase 90 07/25/24 13:18 07/25/24 Unknown Orders (Tests/Meds): ED MEDICATIONS Discontinued Medications Generic Name Dose Route Start Last Admin Trade Name Freq PRN Reason Stop Dose Admin Belladonna Alkaloids 60 ml 07/25/24 12:29 07/25/24 12:39 Belladonna Alkaloids 60 Ml Ml PO 07/25/24 12:30 60 ml ONCE ONE Administration ORDERS Category Date Time Status CBC w/Auto Diff [Complete Blood Count Auto Diff] Stat Lab 07/25/24 13:18 Completed CMP [Comprehensive Metabolic Panel] Stat Lab 07/25/24 Completed Lipase Stat Lab 07/25/24 Completed Magnesium Stat Lab 07/25/24 Completed Phosphorous Stat Lab 07/25/24 Completed Medical Decision Narrative: In summary patient is a 43-year-old female who presents to the emergency department for evaluation of stomach pain and intolerance of oral intake. Patient is hemodynamically stable upon arrival, afebrile. Physical exam is remarkable for very mild epigastric tenderness on palpation without rebound or guarding or rigidity. Bowel sounds normal active. Breath sounds clear and equal bilaterally to the bases without adventitious sounds. No palpable chest pain.. Differential diagnosis includes esophagitis versus gastritis versus peptic ulcer disease etc. Initial workup will be conducted with hematologic labs. Initial interventions include GI cocktail. Initial workup reviewed by me shows that her labs are reassuring and nonactionable with no electrolyte disturbances. Patient appears to be well-nourished with an albumin of 4.1. Upon repeat evaluation had complete resolution of her symptoms after GI cocktail and was able to tolerate oral intake. Given this patient is appropriate for discharge with referrals to GI for upper endoscopy, [facility] for ongoing management of her opioid use disorder in remission and stimulant use disorder in remission and anxiety. Critical Care Critical Care Time Critical Care Time: No
[2024-07-25 12:35] VITALS: BP 126/83; PULSE 91; TEMP 35.5
[2024-07-25] MEDS: BELLADONNA ALKALOIDS 60 ML ML PO (12:39)
[2024-07-25 13:30] LABS: Basophils # 0.1 K/mm3 (0-0.2); Basophils % 0.5 % (0.1-2.0); Eosinophils # 0.1 K/mm3 (0.0-0.4); Eosinophils % 1.3 % (0.1-12.0); Hematocrit 46.5 % (37.0-47.0); Hemoglobin 16.1 g/dL (12.2-16.2); Lymphocytes # 3.1 K/mm3 (0.7-4.5); Lymphocytes % 32.8 % (10-50); Mean Corpuscular HGB Conc 34.6 g/dL (31.8-35.4); Mean Corpuscular Hemoglobin 31.2 pg (27.0-31.2); Mean Corpuscular Volume 90.1 fl (81-99); Mean Platelet Volume 11.5 fl (7.4-10.4); Monocytes # 0.9 K/mm3 (0.1-1.0); Monocytes % 9.3 % (1.7-9.3); Neutrophils # 5.1 K/mm3 (1.8-7.8); Neutrophils % 55.3 % (37.0-80.0); Platelet Count 301 K/mm3 (142-424); Red Blood Count 5.16 M/mm3 (4.20-5.40); Red Cell Distribution Width 12.3 % (11.5-17.5); White Blood Count 9.3 K/mm3 (4.8-10.8)
[2024-07-25 13:43] LABS: Alanine Aminotransferase 27 U/L (12-78); Albumin Level 4.1 g/dl (3.5-5.0); Albumin/Globulin Ratio 1.2 (1.1-1.8); Alkaline Phosphatase 79 U/L (38-126); Anion Gap 6.9 mEq/L (5-15); Aspartate Amino Transferase 38 U/L (14-36); Bilirubin,Total 0.5 mg/dl (0.2-1.3); Blood Urea Nitrogen 24 mg/dl (7-17); Calcium 9.7 mg/dl (8.4-10.2); Carbon Dioxide 36 mmol/L (22.0-30.0); Chloride 99 mmol/L (98-107); Estimated Glomerular Filt Rate 92 ml/min (>60); GFR (African American) 112 ML/MIN (>60); Globulin 3.3 g/dL (1.3-3.2); Glucose 77 mg/dl (74-100); Lipase 90 U/L (23-300); Phosphorous 4.3 mg/dl (2.5-4.5); Potassium 4.9 mmoL/L (3.5-5.1); Sodium 137 mmol/L (136-145); Total Protein,Serum 7.4 g/dl (6.3-8.2)
[2024-07-25 14:48] VITALS: BP 126/89; PULSE 98; RESP 18; TEMP 36.6; O2SAT 99
--- NOTE | 2024-07-25 16:15 | PEERSUPPORT ---
Peer Support Note Patient Information Patient Information: DOS: 07/25/2024 ? Reason: OUD/Ps consult ? Presenting Problem: Unable to eat Abdominal pain ? Pt stated she has not been able to eat for four days. She has been able to drink a six pack of nutrition/protein drinks only. She is having pain in her stomach. She confirms she has not used any drugs and or alcohol. ? Ps explored leading up to when symptoms began, Home life- stressful, pt shares briefly of her stressors at home. Work life- stressful, pt does enjoy her job and the people she works with just having a hard time with it lately. Mental health- poor, says she needs help with her mental health. No SI. Pt is scared she will lose her job if she takes anytime off of work. She has worked for three years and only missed a total of five days. Ps informs pt of rights as an employee through [employer] Emotional health- poor as patients stated she has become more irritable not able to tolerate like she normally would stressful situations. Outside work she is most comfortable isolated and withdrawn from others. Physical Health- Pt stated she has lost weight, more pain with stomach, unable to eat, no appetite, and feels something is very wrong like she may have cancer and is dying. ? Ps shared personal relevant experiences to situations encouraging recovery focused action by choice for wellness as a whole including mental, emotional, and physical. ? Pt stated she is interested in transferring from [facility] outpatient clinic to [facility] in hopes to receive the level of care she needs. ? Ps contacts [facility] for referral to setup appointment: Active [facility] RX: 08/10/2023 Ps provided referral information for [facility]. ? Plan of Action: Take medications as prescribed and directed. Refrain from using any drugs or alcohol. Educate on FMLA: Ps provided information page of [place]. Contact [facility] to make contact and connection. Pt agreed to phone calls from [facility] peer support for positive support to recovery. Practice deep breathing exercises: Ps practiced with Pt at bedside in ED. Mindfulness with eating and thought patterns.
--- NOTE | 2024-08-14 19:17 | PEERSUPPORT ---
Peer Support Note Patient Information Patient Information: DOS: 08/14/2024 ? No answer Left voicemail ? DOS: 07/30/2024 ? Pt attempted contact with patient. No answer Left voicemail ?
== END 2024-07-25 14:48 | disposition home or self-care (01) ==
PROVIDERS: Physician Assistant; Emergency Provider Student in an Organized Health Care Education/Training Program; PCP Family Medicine
DX: R10.13 Epigastric pain (principal); F11.91 Opioid use, unspecified, in remission; F41.1 Generalized anxiety disorder; F15.90 Other stimulant use, unspecified, uncomplicated; R11.2 Nausea with vomiting, unspecified; R53.1 Weakness; R19.7 Diarrhea, unspecified
CPT/HCPCS: 80053; 83690; 83735; 84100; 85025; 99283

== ENCOUNTER 2024-12-28 13:04 | Emergency (ER) | payer SELFPAY ==
[2024-12-28 13:12] VITALS: BP 125/97; PULSE 108; RESP 14; TEMP 37; O2SAT 98; BMI 19.2
--- NOTE | 2024-12-28 13:12 | CT_ITS ---
PROCEDURE INFORMATION: Exam: CT Abdomen And Pelvis Without Contrast Exam date and time: 12/28/2024 2:31 PM Age: 44 years old Clinical indication: Abdominal pain; Additional info: Right flank pain TECHNIQUE: Imaging protocol: Computed tomography of the abdomen and pelvis without contrast. Radiation optimization: All CT scans at this facility use at least one of these dose optimization techniques: automated exposure control; mA and/or kV adjustment per patient size (includes targeted exams where dose is matched to clinical indication); or iterative reconstruction. COMPARISON: CR XR CHEST PORTABLE 07/19/2024 10:41 AM FINDINGS: Tubes, catheters and devices: None noted. Lungs: Lung bases appear clear. Heart: No significant coronary calcifications. No cardiomegaly. No significant pericardial effusion. Liver: Normal. No mass. Gallbladder and biliary ducts: Normal. No calcified stones. No ductal dilation. Pancreas: Normal. No ductal dilation. Spleen: Normal. No splenomegaly. Adrenal glands: Normal. No mass. Kidneys and ureters: Normal. No hydronephrosis. Stomach and bowel: Unremarkable. No obstruction. No mucosal thickening. Appendix: No evidence of appendicitis. Intraperitoneal space: Unremarkable. No free air. No significant fluid collection. Retroperitoneal space: No significant retroperitoneal inflammatory changes are noted. Vasculature: Unremarkable. No abdominal aortic aneurysm. Lymph nodes: Unremarkable. No enlarged lymph nodes. Urinary bladder: Unremarkable as visualized. Reproductive: Unremarkable as visualized. Bones/joints: Unremarkable. No acute fracture. Soft tissues: Unremarkable. IMPRESSION: No acute findings.
--- NOTE | 2024-12-28 13:19 | ED_ITS ---
<Statement entered by Edmund Chandler MD - 12/28/24 23:19> I was consulted by the MARTA, and we discussed the complexity of the problems being addressed. I approved the treatment and management plan for this patient's care in the emergency department, thus performing a substantive portion of the medical decision making. Edmund Chandler MD, ADONAY, FACEP <Statement entered by Mindy Goodrich DO - 12/28/24 15:32> I was consulted by the MARTA, and we discussed the complexity of the problems being addressed. I approved the treatment and management plan for this patient's care in the emergency department, thus performing a substantive portion of the medical decision making. Patient's only complaint to me is abdominal pain. I dependently turbid CT scan prior to radiology read and noted significant fecal impaction/stool burden. Read pending at time of signout to Dr. Ramesh Goodrich DO Discharge Plan Disposition Chief Complaint: Weakness Prescriptions Prescriptions: No Action buprenorphine-naloxone 8-2 mg tablet, sublingual 1 tab sublingual DAILY Referrals Follow up/Referrals: Provider,Referral, [Primary Care Provider, Medical] - See instructions Print Language Print Language: Taiwanese Discharge ED Provider: Mindy Goodrich General Adult HPI <Dora Brown (ED), VAMP CREASER - Last Filed: 12/28/24 16:36> General Chief complaint: Weakness Stated complaint: Weakness Time Seen by Provider: 12/28/24 13:10 History of Present Illness HPI narrative: 44-year-old female presents to the ED today for complaint of feeling weak and being unable to eat and having no appetite. She has had no vomiting or diarrhea. She tells me that she has diffuse abdominal pain. She has had a headache for a while. Getting her to quantify a while finally came down to 2 to 3 weeks. She says she became worse and weaker today that made her come into the ED. She does want IV fluids today. She has had no urinary problems. She flagged down long enforcement and they called EMS to bring her in today. Patient is on Suboxone and a patient of Dr. Garcia's. Patient did tell another member of staff that she had embalming fluid going through her veins. Denies suicidal or homicidal ideations. Patient repeatedly asked for IV fluids. Related Data Home Medications ?Medication ?Instructions ?Recorded ?Confirmed buprenorphine 8 mg-naloxone 2 mg 1 tab sublingual DAYANNA Y 01/25/23 12/28/24 sublingual tablet Allergies Allergy/AdvReac Type Severity Reaction Status Date / Time No Known Allergies Allergy Verified 12/28/24 13:48 PFSH <Dora Brown (ED), VAMP CREASER - Last Filed: 12/28/24 16:36> PFS Disclaimer: The information contained in this section may have been updated after the patient was seen, as this information can be updated by other users. Medical History History of hepatitis C Substance abuse Social History (Updated 06/14/24 @ 14:00 by Blossom Bills APRN) Smoking Status: Current every day smoker alcohol intake: never substance use type: former substance user, heroin, amphetamines, opiates and methamphetamine current occupational status: employed and unemployed Travel in the last 8 weeks?: None Have you lived/traveled outside [place] in past 30 days?: No Contact w/someone who lives/traveled outside US past 30 days?: No Exposure to someone with infectious disease in past 14 days?: No Do you have a fever (greater than 100.4 F or 38 C)?: No Have you tested positive for COVID-19?: No Exposed to someone with COVID-19 in past 14 days?: No Do you have a sore throat?: No Do you have a cough?: No Do you have any weakness?: Yes Do you have any diarrhea?: No Are you experiencing any unusual bleeding?: No Do you have any muscle aches/pain?: No Do you have any abdominal pain?: No Are you experiencing loss of taste or smell?: No Other Medical History Have you received the Flu Vaccine for this season: No Have you received the Pneumonia Vaccine: No <Dora Brown (ED), VAMP CREASER - Last Filed: 12/28/24 16:36> ROS Obtained: Yes Systems reviewed as appropriate & no additional complaints except as documented Constitutional Constitutional: Reports as per HPI Physical Exam <Dora Brown (ED), VAMP CREASER - Last Filed: 12/28/24 16:36> General General appearance: alert and anxious Head Head exam: normocephalic Eye Eye exam: Present PERRL and EOMI ENT ENT exam: Present normal oropharynx and mucous membranes moist Neck Neck exam: Present full ROM and trachea midline Respiratory Respiratory exam: Present normal lung sounds bilaterally Cardiovascular Cardiovascular exam: Present normal rhythm, tachycardia, normal heart sounds, +S1 and +S2 Abdominal Exam Abdominal exam: Present soft, tenderness and normal bowel sounds Abdominal tenderness: Present diffuse Extremities Exam Extremities exam: Present full ROM and normal capillary refill Neurological Exam Neurological exam: Present oriented X3 and normal gait Psychiatric Psychiatric exam: Present agitated and anxious Skin Skin exam: Present warm, dry and intact Medical Decision Making <Dora Brown (ED), VAMP CREASER - Last Filed: 12/28/24 16:36> Medical Records Medical records reviewed: Yes I reviewed the patient's medical records. Screening: Per USPSTF and CDC recommendations, given the prevalence of disease in our region, it is our hospital?s policy to screen for HIV and viral Hepatitis for all patients aged 18 and over and those with ongoing risk factors. Alexis Inquiry Pt receiving controlled substance: No Alexis was queried for this patient: No Vital Signs: 12/28/24 13:12 12/28/24 14:00 12/28/24 14:58 Temperature 98.6 F Temperature Source Oral Pulse Rate 98 H Pulse Rate [Left] 108 H Respiratory Rate 14 Blood Pressure 122/89 147/81 H Blood Pressure [Right Arm] 125/97 H Blood Pressure Mean 97 Blood Pressure Mean [Right Arm] 106 Blood Pressure Source [Right Arm] Automatic Cuff Blood Pressure Position [Right Arm] Sitting 02 Sat by Pulse Oximetry 98 97 97 Oxygen Delivery Method Room Air 12/28/24 15:01 12/28/24 15:30 Temperature Temperature Source Pulse Rate 95 H 95 H Pulse Rate [Left] Respiratory Rate 18 Blood Pressure 119/88 130/87 Blood Pressure [Right Arm] Blood Pressure Mean 94 Blood Pressure Mean [Right Arm] Blood Pressure Source [Right Arm] Blood Pressure Position [Right Arm] 02 Sat by Pulse Oximetry 98 98 Oxygen Delivery Method Lab Data Lab Results 12/28/24 13:36: Urine Color Yellow, Urine Appearance Clear, Urine pH 6.0, Ur Specific [place] 1.025, Urine Protein 1+ A, Urine Glucose (UA) Negative, Urine Ketones Negative, Urine Blood Negative, Urine Nitrate Negative, Urine Bilirubin Negative, Urine Urobilinogen 0.2, Ur Leukocyte Esterase Negative, Urine RBC 3-5, Urine WBC 5-10, Ur Squamous Epith Cells 10-20, Urine Bacteria 1+, Urine Mucus 1+, Urine Opiates Screen Negative 12/28/24 13:36: Urine Opiates Screen Negative, Urine Methadone Screen Negative 12/28/24 13:36: Urine Methadone Screen Negative, Ur Barbituates Screen Negative 12/28/24 13:36: Ur Barbituates Screen Negative, Ur Phencyclidine Scrn Negative 12/28/24 13:36: Ur Phencyclidine Scrn Negative, Ur Amphetamines Screen Negative 12/28/24 13:36: Ur Amphetamines Screen Negative, U Benzodiazepines Scrn Negative 12/28/24 13:36: U Benzodiazepines Scrn Negative, Urine Cocaine Screen Negative 12/28/24 13:36: Urine Cocaine Screen Negative, U Marijuana (THC) Screen Positive H 12/28/24 13:36: U Marijuana (THC) Screen Positive H 12/28/24 13:53: WBC 7.9, RBC 4.43, Hgb 14.4, Hct 40.5, MCV 91.4, MCH 32.5 H, M CHC 35.6 H, RDW 12.9, Plt Count 236, MPV 12.0 H, Neut % (Auto) 69.5, Lymph % (Auto) 20.9, [place] % (Auto) 7.6, Eos % (Auto) 1.1, Baso % (Auto) 0.6, Neut # (Auto) 5.5, Lymph # (Auto) 1.6, [place] # (Auto) 0.6, Eos # (Auto) 0.1, Baso # (Auto) 0.1, Sodium 137, Potassium 4.2, Chloride 108 H, Carbon Dioxide 26, Anion Gap 7.2, BUN 8, Creatinine 0.60, Estimated Creat Clear 92, Estimated GFR 110, Est GFR ( Amer) 133, Glucose 98, Calcium 9.4, Magnesium 1.6, Total Bilirubin 0.7, AST 40 H, ALT 23, Alkaline Phosphatase 65, Troponin I < 0.01, Total Protein 7.8, Albumin 4.5, Globulin 3.3 H, Albumin/Globulin Ratio 1.4, Lipase 59 12/28/24 13:53 12/28/24 13:53 Orders (Tests/Meds): ED MEDICATIONS Generic Name Dose Route Start Last Admin Trade Name Freq PRN Reason Stop Dose Admin Sodium Chloride 8 ml 12/28/24 13:11 Sodium Chloride 0.9% 10ml Vial IV 01/27/25 13:10 NEEDED PRN dilute pepcid Discontinued Medications Generic Name Dose Route Start Last Admin Trade Name Mila PRN Reason Stop Dose Admin Famotidine 20 mg 12/28/24 13:11 12/28/24 13:45 Famotidine 20mg/2ml Vial IV 12/28/24 13:12 20 mg ONCE ONE Administration Sodium Chloride 1,000 mls @ 999 mls/hr 12/28/24 13:11 12/28/24 13:33 Sod Chlor 0.9% 1000ml Bag IV 12/28/24 14:11 999 mls/hr .Q1H1M ONE Administration Ondansetron HCl 4 mg 12/28/24 13:13 12/28/24 13:36 Ondansetron 4mg/2ml Vial IV 12/28/24 13:14 4 mg ONCE ONE Administration ORDERS Category Date Time Status CT abdomen pelvis wo con Stat Cat Scan 12/28/24 13:12 Completed Consult Lending Consultant [CONS] Routine Cons 12/28/24 13:39 Active CBC [Complete Blood Count Auto Diff] Stat Lab 12/28/24 13:53 Completed Comprehensive Metabolic Panel Stat Lab 12/28/24 13:53 Completed Drug Screen,Urine Stat Lab 12/28/24 13:36 Completed Drug Screen,Urine Stat Lab 12/28/24 13:36 Completed Lipase Stat Lab 12/28/24 13:53 Completed Magnesium Stat Lab 12/28/24 13:53 Completed Trop I [Troponin I] Stat Lab 12/28/24 13:53 Completed Troponin I Q3H Lab 12/28/24 16:20 Received Troponin I Q3H Lab 12/28/24 19:15 Ordered Urinalysis and Microscopic Stat Lab 12/28/24 13:36 Completed Medical Decision Narrative: patient is a 44-year-old female presenting to the emergency department for evaluation of abdominal pain, nausea and weakness. Patient is hemodynamically stable and nontoxic-appearing upon arrival, afebrile. Differential diagnosis includes substance abuse, abdominal pain, GERD, peptic ulcer, among others. Workup will be conducted with hematologic labs, specific imaging. Initial inventions include crystalloid bolus, analgesics, antibiotics. Patient has exhibited behavior as if she was on some sort of substance. She tells me that she is not on drugs. She does take Suboxone. Initial workup reviewed by me patient's labs were unremarkable.. Imaging informally interpreted by me and remarkable for constipation. Formal imaging read remarkable for nothing acute. Upon repeat evaluation patient's pain is improved. Patient and I discussed medication for reflux and constipation. Patient is safe for discharge home. Annalise is in the room to help with substance abuse. <Mindy Goodrich, DO - Last Filed: 12/28/24 15:33> Vital Signs: 12/28/24 13:12 12/28/24 14:00 12/28/24 14:58 Temperature 98.6 F Temperature Source Oral Pulse Rate 98 H Pulse Rate [Left] 108 H Respiratory Rate 14 Blood Pressure 122/89 147/81 H Blood Pressure [Right Arm] 125/97 H Blood Pressure Mean 97 Blood Pressure Mean [Right Arm] 106 Blood Pressure Source [Right Arm] Automatic Cuff Blood Pressure Position [Right Arm] Sitting 02 Sat by Pulse Oximetry 98 97 97 Oxygen Delivery Method Room Air 12/28/24 15:01 12/28/24 15:30 Temperature Temperature Source Pulse Rate 95 H 95 H Pulse Rate [Left] Respiratory Rate 18 Blood Pressure 119/88 130/87 Blood Pressure [Right Arm] Blood Pressure Mean 94 Blood Pressure Mean [Right Arm] Blood Pressure Source [Right Arm] Blood Pressure Position [Right Arm] 02 Sat by Pulse Oximetry 98 98 Oxygen Delivery Method Lab Data Lab Results 12/28/24 13:36: Urine Color Yellow, Urine Appearance Clear, Urine pH 6.0, Ur Specific [place] 1.025, Urine Protein 1+ A, Urine Glucose (UA) Negative, Urine Ketones Negative, Urine Blood Negative, Urine Nitrate Negative, Urine Bilirubin Negative, Urine Urobilinogen 0.2, Ur Leukocyte Esterase Negative, Urine RBC 3-5, Urine WBC 5-10, Ur Squamous Epith Cells 10-20, Urine Bacteria 1+, Urine Mucus 1+, Urine Opiates Screen Negative 12/28/24 13:36: Urine Opiates Screen Negative, Urine Methadone Screen Negative 12/28/24 13:36: Urine Methadone Screen Negative, Ur Barbituates Screen Negative 12/28/24 13:36: Ur Barbituates Screen Negative, Ur Phencyclidine Scrn Negative 12/28/24 13:36: Ur Phencyclidine Scrn Negative, Ur Amphetamines Screen Negative 12/28/24 13:36: Ur Amphetamines Screen Negative, U Benzodiazepines Scrn Negative 12/28/24 13:36: U Benzodiazepines Scrn Negative, Urine Cocaine Screen Negative 12/28/24 13:36: Urine Cocaine Screen Negative, U Marijuana (THC) Screen Positive H 12/28/24 13:36: U Marijuana (THC) Screen Positive H 12/28/24 13:53: WBC 7.9, RBC 4.43, Hgb 14.4, Hct 40.5, MCV 91.4, MCH 32.5 H, M CHC 35.6 H, RDW 12.9, Plt Count 236, MPV 12.0 H, Neut % (Auto) 69.5, Lymph % (Auto) 20.9, [place] % (Auto) 7.6, Eos % (Auto) 1.1, Baso % (Auto) 0.6, Neut # (Auto) 5.5, Lymph # (Auto) 1.6, [place] # (Auto) 0.6, Eos # (Auto) 0.1, Baso # (Auto) 0.1, Sodium 137, Potassium 4.2, Chloride 108 H, Carbon Dioxide 26, Anion Gap 7.2, BUN 8, Creatinine 0.60, Estimated Creat Clear 92, Estimated GFR 110, Est GFR ( Amer) 133, Glucose 98, Calcium 9.4, Magnesium 1.6, Total Bilirubin 0.7, AST 40 H, ALT 23, Alkaline Phosphatase 65, Troponin I < 0.01, Total Protein 7.8, Albumin 4.5, Globulin 3.3 H, Albumin/Globulin Ratio 1.4, Lipase 59 Orders (Tests/Meds): ED MEDICATIONS Generic Name Dose Route Start Last Admin Trade Name Freq PRN Reason Stop Dose Admin Sodium Chloride 8 ml 12/28/24 13:11 Sodium Chloride 0.9% 10ml Vial IV 01/27/25 13:10 NEEDED PRN dilute pepcid Discontinued Medications Generic Name Dose Route Start Last Admin Trade Name Freq PRN Reason Stop Dose Admin Famotidine 20 mg 12/28/24 13:11 12/28/24 13:45 Famotidine 20mg/2ml Vial IV 12/28/24 13:12 20 mg ONCE ONE Administration Sodium Chloride 1,000 mls @ 999 mls/hr 12/28/24 13:11 12/28/24 13:33 Sod Chlor 0.9% 1000ml Bag IV 12/28/24 14:11 999 mls/hr .Q1H1M ONE Administration Ondansetron HCl 4 mg 12/28/24 13:13 12/28/24 13:36 Ondansetron 4mg/2ml Vial IV 12/28/24 13:14 4 mg ONCE ONE Administration ORDERS Category Date Time Status CT abdomen pelvis wo con Stat Cat Scan 12/28/24 13:12 Completed Consult Lending Consultant [CONS] Routine Cons 12/28/24 13:39 Active CBC [Complete Blood Count Auto Diff] Stat Lab 12/28/24 13:53 Completed Comprehensive Metabolic Panel Stat Lab 12/28/24 13:53 Completed Drug Screen,Urine Stat Lab 12/28/24 13:36 Completed Drug Screen,Urine Stat Lab 12/28/24 13:36 Completed Lipase Stat Lab 12/28/24 13:53 Completed Magnesium Stat Lab 12/28/24 13:53 Completed Trop I [Troponin I] Stat Lab 12/28/24 13:53 Completed Troponin I Q3H Lab 12/28/24 16:20 Received Troponin I Q3H Lab 12/28/24 19:15 Ordered Urinalysis and Microscopic Stat Lab 12/28/24 13:36 Completed ECG Data Tracing #1: I reviewed this ECG and interpreted as documented below: Normal sinus rhythm with a ventricular rate of [address] changes concerning for STEMI. Normal intervals ECG initial impression date: 12/28/24 ECG initial impression time: 13:28 Critical Care <Mindy Goodrich, DO - Last Filed: 12/28/24 15:33> Critical Care Time Critical Care Time: No
--- NOTE | 2024-12-28 13:27 | ECG_ITS ---
APPROVED REPORT Exam: Resting ECG HR:99 bpm ECG Measurements Heart Rate 99 AXES NV 123 P 78 QRSd 79 QRS 85 QT 325 T 74 QTc 381 Conclusion SINUS RHYTHM no STEMI Electronically signed by : EMY ASIF, 12/29/2024 07:14:22
[2024-12-28] MEDS: 0.9 % SODIUM CHLORIDE 1000ML 1,000 ML 999 ML IV (13:33)
[2024-12-28] MEDS: ONDANSETRON 4MG/2ML VIAL 4 MG IV (13:36)
[2024-12-28] MEDS: FAMOTIDINE 20MG/2ML VIAL 20 MG IV (13:45)
[2024-12-28 13:56] LABS: Microscopic, Urine URINE MICROSCOPIC (MICROSCOPIC)
[2024-12-28 14:00] VITALS: BP 122/89; O2SAT 97
[2024-12-28 14:16] LABS: Albumin Level 4.5 g/dl (3.5-5.0); Chloride 108 mmol/L (98-107); Potassium 4.2 mmoL/L (3.5-5.1); Sodium 137 mmol/L (136-145)
[2024-12-28 14:18] LABS: Alanine Aminotransferase 23 U/L (12-78); Aspartate Amino Transferase 40 U/L (14-36); Blood Urea Nitrogen 8 mg/dl (7-17); Creatinine Clearance Estimated 92 mL/min (50-200); Estimated Glomerular Filt Rate 110 ml/min (>60); GFR (African American) 133 ML/MIN (>60)
[2024-12-28 14:19] LABS: Albumin/Globulin Ratio 1.4 (1.1-1.8); Alkaline Phosphatase 65 U/L (38-126); Anion Gap 7.2 mEq/L (5-15); Bilirubin,Total 0.7 mg/dl (0.2-1.3); Calcium 9.4 mg/dl (8.4-10.2); Carbon Dioxide 26 mmol/L (22.0-30.0); Globulin 3.3 g/dL (1.3-3.2); Glucose 98 mg/dl (74-100); Lipase 59 U/L (23-300); Magnesium 1.6 mg/dl (1.6-2.3); Total Protein,Serum 7.8 g/dl (6.3-8.2)
--- NOTE | 2024-12-28 14:28 | PC.NURSE ---
radiology notfied nursing staff that patients iv was laying on the ground, she was ultrasound guided, provider notified and stated non contrast iv was ok to do
[2024-12-28 14:30] LABS: Appearance,Urine CLEAR (Clear); Bilirubin,Urine Negative (Negative); Blood, Urine Negative (Negative); Color,Urine YELLOW (Yellow); Glucose,Urine (UA) Negative (Negative); Ketones,Urine Negative (Negative); Leukocyte Esterase,Urine Negative (Negative); Nitrate,Urine Negative (Negative); Protein,Urine 1+ (Negative); Specific Gravity, Urine 1.025 (1.005-1.030); Urobilinogen,Urine 0.2 EU/dl (0.2)
[2024-12-28 14:40] LABS: Basophils # 0.1 K/mm3 (0-0.2); Basophils % 0.6 % (0.1-2.0); Eosinophils # 0.1 Kmm3 (0.0-0.4); Eosinophils % 1.1 % (0.1-12.0); Hematocrit 40.5 % (37.0-47.0); Hemoglobin 14.4 g/dL (12.2-16.2); Immature Granulocytes # 0.02 10^3uL; Immature Granulocytes % 0.3 %; Lymphocytes # 1.6 K/mm3 (0.7-4.5); Lymphocytes % 20.9 % (10-50); Mean Corpuscular HGB Conc 35.6 g/dL (31.8-35.4); Mean Corpuscular Hemoglobin 32.5 pg (27.0-31.2); Mean Corpuscular Volume 91.4 fl (81-99); Monocytes # 0.6 K/mm3 (0.1-1.0); Monocytes % 7.6 % (1.7-9.3); Neutrophils # 5.5 K/mm3 (1.8-7.8); Neutrophils % 69.5 % (37.0-80.0); Nucleated Red Blood Cells # 0 10^3/uL; Nucleated Red Blood Cells % 0 %; Platelet Count 236 K/mm3 (142-424); Red Blood Count 4.43 M/mm3 (4.20-5.40); Red Cell Distribution Width 12.9 % (11.5-17.5); White Blood Count 7.9 K/mm3 (4.8-10.8)
[2024-12-28 14:44] LABS: Troponin I < 0.01 ng/ml (0.00-0.034)
[2024-12-28 14:55] LABS: Bacteria,Urine 1+ /lpf; Mucus,Urine 1+ /lpf
[2024-12-28 14:58] VITALS: BP 147/81; PULSE 98; O2SAT 97
[2024-12-28 15:01] VITALS: BP 119/88; PULSE 95; O2SAT 98
[2024-12-28 15:23] LABS: Amphetamine/Metha Screen,Urine Negative ng/ml (<1000)
[2024-12-28 15:24] LABS: Barbiturates Screen,Urine Negative ng/ml (<200); Benzodiazepines Screen,Urine Negative ng/ml (<200)
[2024-12-28 15:25] LABS: Cannabinoid Screen,Urine Positive ng/ml (<50)
[2024-12-28 15:26] LABS: Cocaine Screen,Urine Negative ng/ml (<300); Methadone Screen,Urine Negative ng/ml (<300)
[2024-12-28 15:27] LABS: Opiate Screen,Urine Negative ng/ml (<300); Phencyclidine Screen,Urine Negative ng/ml (<25)
[2024-12-28 15:30] VITALS: BP 130/87; PULSE 95; RESP 18; O2SAT 98
--- NOTE | 2024-12-28 15:50 | PC.NURSE ---
Rounded on pt. Pt resting. Easy to arouse. No needs stated at this time by pt.
[2024-12-28 16:21] LABS: Amphetamine/Metha Screen,Urine Negative ng/ml (<1000)
[2024-12-28 16:22] LABS: Barbiturates Screen,Urine Negative ng/ml (<200)
[2024-12-28 16:23] LABS: Benzodiazepines Screen,Urine Negative ng/ml (<200); Cannabinoid Screen,Urine Positive ng/ml (<50)
[2024-12-28 16:24] LABS: Cocaine Screen,Urine Negative ng/ml (<300); Methadone Screen,Urine Negative ng/ml (<300)
[2024-12-28 16:25] LABS: Opiate Screen,Urine Negative ng/ml (<300)
[2024-12-28 16:26] LABS: Phencyclidine Screen,Urine Negative ng/ml (<25)
[2024-12-28 16:54] VITALS: BP 135/68; PULSE 86; RESP 16; TEMP 36.7; O2SAT 99
[2024-12-28 17:23] LABS: Troponin I < 0.01 ng/ml (0.00-0.034)
--- NOTE | 2024-12-28 18:22 | PEERSUPPORT ---
Peer Support Note Patient Information Patient Information: DOS: 12/28/2024 ? Pt withdrawn but acknowledges passed encounter with ps. She confirms she is still actively enrolled in MAT program through [facility]. 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 Pt stated she has been under a lot of stress and having trouble trusting people. She does have one person who is helpful to her. ? Pt confirms no relapse, but no recovery connection outside [facility] clinic. She anticipates she will be kicked out of her house and not sure where she will be going. ? Ps offers sober living resources; [facility] or other options from [facility]. ? Pt stated she has two dogs she has to care for and she will not leave them. Pt becomes agitated wanting to take a nap. ? Ps provides pillow and extra blanket for immediate comfort. Pt ask for water in a bottle that is unopened or a pop in a can that is unopened. ? Ps provides drinks unopened, pt accepts. ? Ps provides card with contact information? for future needs as well as [facility] information if she decided to transfer clinics to have more face to face interaction with outpatient clinic. ? Pt is receptive, expressing thanks for support. ?
== END 2024-12-28 16:55 | disposition home or self-care (01) ==
PROVIDERS: Nurse Practitioner; Emergency Provider Emergency Medicine
DX: R10.84 Generalized abdominal pain (principal); K59.00 Constipation, unspecified; R11.0 Nausea; R53.1 Weakness; F17.210 Nicotine dependence, cigarettes, uncomplicated
CPT/HCPCS: 74176; 80053; 80307; 81001; 83690; 83735; 84484; 85025; 93005; 96361; 96374; 96375; 99285; J2405; J7030

== ENCOUNTER 2025-03-11 17:37 | Emergency (ER) | payer SELFPAY ==
[2025-03-11 17:47] VITALS: BP 108/74; PULSE 100; RESP 18; TEMP 36.8; O2SAT 99; BMI 21.2
--- NOTE | 2025-03-11 18:08 | ED_ITS ---
<Statement entered by Freddy De Luna MD - 03/12/25 13:45> I was consulted by the MARTA, and we discussed the complexity of the problems being addressed. I approve the treatment and management plan for this patient's care in the emergency department, thus performing a substantive portion of the medical decision making. Freddy De Luna MD Discharge Plan Disposition Patient Disposition: Left Against Medical Advice Prescriptions Prescriptions: No Action buprenorphine-naloxone 8-2 mg tablet, sublingual 1 tab sublingual DAILY famotidine 40 mg tablet 40 mg PO DAILY Qty: 30 0RF Linzess 145 mcg capsule 145 mcg PO DAILY Qty: 20 0RF Referrals Follow up/Referrals: Blossom Bills APRN [Primary Care Provider, Family Practice] - See instructions Clinical Impressions Clinical Impression: Substance abuse in remission, Nausea, Lack of appetite Instructions Patient Instructions: DI for Diarrhea and Traveler's Diarrhea -- Adult, DI for Diarrhea and Traveler's Diarrhea -- Child, DI for Nausea -- Adult, DI for Nausea -- Child Print Language Print Language: Belarusian Discharge ED Provider: Freddy De Luna General Adult HPI <JAVIER Valles - Last Filed: 03/11/25 19:18> General Chief complaint: Nausea/Vomiting/Diarrhea Stated complaint: unable to eat,CHUA Time Seen by Provider: 03/11/25 17:47 Mode of Arrival: Ambulatory Source of Information: Patient Description of Symptoms (Recalled from ER Triage Doc. by RN): Patient states she has not had any appetite for several months. History of Present Illness HPI narrative: 44-year-old female presents the emergency department for 1 to 2 months of nausea poor p.o. 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 Patient also does complain of headache this ongoing, does have history of waxing waning/chronic headaches. No formal diagnosis of migraines. Please note that above description of symptoms, in this electronic medical record under categorization of recalled from ER triage doctor by RN are reflective of an initial nursing assessment, however, is not reflective of my full history and physical exam that was personally taken and clarified. Consequentially, this preceding description of symptoms, which may include the patient's categorized chief complaint in the EMR, do not reflect my personal clinical impression, and the ultimate description of history of present illness and patient stated complaints should be deferred to this section of the note. Unless stated otherwise or congruent with this section of the note, additional signs, symptoms, or incongruence should be interpreted as inaccurate with my c linical impression. Onset (ago): month(s) Related Data Home Medications ?Medication ?Instructions ?Recorded ?Confirmed buprenorphine 8 mg-naloxone 2 mg 1 tab sublingual DAYANNA Y 01/25/23 12/28/24 sublingual tablet Previous Rx's ?Medication ?Instructions ?Recorded famotidine 40 mg tablet 40 mg PO DAILY #30 tabs 02/14 linaclotide 145 mcg capsule 145 mcg PO DAILY #20 caps 12/28/24 (Linzess) Allergies Allergy/AdvReac Type Severity Reaction Status Date / Time No Known Allergies Allergy Verified 12/28/24 13:48 [facility] <JAVIER Valles - Last Filed: 03/11/25 19:18> [facility] Disclaimer: The information contained in this section may have been updated after the patient was seen, as this information can be updated by other users. Medical History History of hepatitis C Substance abuse Social History (Updated 06/14/24 @ 14:00 by Blossom Bills APRN) Smoking Status: Current every day smoker alcohol intake: never substance use type: former substance user, heroin, amphetamines, opiates and methamphetamine current occupational status: employed and unemployed Travel in the last 8 weeks?: None Have you lived/traveled outside [place] in past 30 days?: No Contact w/someone who lives/traveled outside US past 30 days?: No Exposure to someone with infectious disease in past 14 days?: No Do you have a fever (greater than 100.4 F or 38 C)?: No Have you tested positive for COVID-19?: No Exposed to someone with COVID-19 in past 14 days?: No Do you have a sore throat?: No Do you have a cough?: No Do you have any weakness?: No Do you have any diarrhea?: No Are you experiencing any unusual bleeding?: No Do you have any muscle aches/pain?: No Do you have any abdominal pain?: No Are you experiencing loss of taste or smell?: No Other Medical History Have you received the Flu Vaccine for this season: No Have you received the Pneumonia Vaccine: No <JAVIER Valles - Last Filed: 03/11/25 19:18> ROS Obtained: Yes All systems reviewed & no additional complaints except as documented Physical Exam <JAVIER Valles - Last Filed: 03/11/25 19:18> General General appearance: alert, in no apparent distress and anxious Head Head exam: atraumatic and normocephalic Eye Eye exam: Present PERRL and EOMI ENT ENT exam: Present mucous membranes moist Neck Neck exam: Present normal inspection Chest Chest inspection: Present normal inspection and symmetric chest wall rise Respiratory Respiratory exam: Present normal lung sounds bilaterally; Absent respiratory distress Cardiovascular Cardiovascular exam: Present regular rate and normal rhythm Abdominal Exam Abdominal exam: Present soft; Absent tenderness, guarding, rebound or rigidity Extremities Exam Extremities exam: Present normal inspection Neurological Exam Neurological exam: Present alert and oriented X3 Psychiatric Psychiatric exam: Present normal affect Skin Skin exam: Present warm and dry Medical Decision Making <JAVIER Valles - Last Filed: 03/11/25 19:18> Medical Records Medical records reviewed: Yes I reviewed the patient's medical records. Screening: Per USPSTF and CDC recommendations, given the prevalence of disease in our region, it is our hospital?s policy to screen for HIV and viral Hepatitis for all patients aged 18 and over and those with ongoing risk factors. Alexis Inquiry Pt receiving controlled substance: No Alexis was queried for this patient: No Vital Signs: 03/11/25 17:47 Temperature 98.2 F Temperature Source Oral Pulse Rate [Left Brachial] 100 H Respiratory Rate 18 Blood Pressure [Left Arm] 108/74 L Blood Pressure Mean [Left Arm] 85 Blood Pressure Source [Left Arm] Automatic Cuff Blood Pressure Position [Left Arm] Sitting 02 Sat by Pulse Oximetry 99 Oxygen Delivery Method Room Air Lab Data Lab results reviewed: Yes I reviewed the patient's lab results. Lab Results 03/11/25 18:25: Urine Opiates Screen Negative, Urine Methadone Screen Negative, Ur Barbituates Screen Negative, Ur Amphetamines Screen Negative, U Benzodiazepines Scrn Negative, Urine Cocaine Screen Negative, U Marijuana (THC) Screen Positive H Orders (Tests/Meds): ED MEDICATIONS Generic Name Dose Route Start Last Admin Trade Name Mila PRN Reason Stop Dose Admin Ondansetron HCl 4 mg 03/11/25 19:16 Ondansetron 4mg/2ml Vial IV 03/11/25 19:17 ONCE ONE ORDERS Category Date Time Status Complete Blood Count Auto Diff Stat Lab 03/11/25 18:07 Ordered Comprehensive Metabolic Panel Stat Lab 03/11/25 18:07 Ordered Drug Screen,Urine Stat Lab 03/11/25 18:25 Results Lactic Acid Stat Lab 03/11/25 18:07 Ordered Lipase Stat Lab 03/11/25 18:07 Ordered Magnesium Stat Lab 03/11/25 18:07 Ordered Urinalysis and Microscopic Stat Lab 03/11/25 18:25 Received Medical Decision Narrative: 43-year-old female presents emergency department, with nausea, poor p.o. intake//poor appetite, differential diagnosis to include but not limited to pancreatitis, gastritis, IBS, cardiac arrhythmia, electrolyte disturbance, hypovolemia, poor nutritional status. I discussed this patient's case with attending physician Will obtain basic laboratory studies, UDS, urinalysis, lipase, lactic acid level, magnesium level, ECG. Nursing staff attempted to get multiple IV placements for blood draw for the patient, patient states I do not want to be stuck anymore, after long discussion with the patient the bedside, patient is willing to attempt ultrasound-guided IV placement, thus attending physician will perform ultrasound-guided IV. Of note, IV administration was successful via ultrasound-guided IV, will give 4 mg Zofran for nausea UDS is notable for THC Of note, I was notified by nursing staff at approximately 7:16 PM that the patient left AGAINST MEDICAL ADVICE prior to me being able to speak with her/prior to her workup being completed. <Freddy De Luna MD - Last Filed: 03/11/25 18:46> Vital Signs: 03/11/25 17:47 Temperature 98.2 F Temperature Source Oral Pulse Rate [Left Brachial] 100 H Respiratory Rate 18 Blood Pressure [Left Arm] 108/74 L Blood Pressure Mean [Left Arm] 85 Blood Pressure Source [Left Arm] Automatic Cuff Blood Pressure Position [Left Arm] Sitting 02 Sat by Pulse Oximetry 99 Oxygen Delivery Method Room Air Lab Data Lab Results 03/11/25 18:25: Urine Opiates Screen Negative, Urine Methadone Screen Negative, Ur Barbituates Screen Negative, Ur Amphetamines Screen Negative, U Benzodiazepines Scrn Negative, Urine Cocaine Screen Negative, U Marijuana (THC) Screen Positive H Orders (Tests/Meds): ED MEDICATIONS Generic Name Dose Route Start Last Admin Trade Name Freq PRN Reason Stop Dose Admin Ondansetron HCl 4 mg 03/11/25 19:16 Ondansetron 4mg/2ml Vial IV 03/11/25 19:17 ONCE ONE ORDERS Category Date Time Status Complete Blood Count Auto Diff Stat Lab 03/11/25 18:07 Ordered Comprehensive Metabolic Panel Stat Lab 03/11/25 18:07 Ordered Drug Screen,Urine Stat Lab 03/11/25 18:25 Results Lactic Acid Stat Lab 03/11/25 18:07 Ordered Lipase Stat Lab 03/11/25 18:07 Ordered Magnesium Stat Lab 03/11/25 18:07 Ordered Urinalysis and Microscopic Stat Lab 03/11/25 18:25 Received Procedures <Freddy De Luna MD - Last Filed: 03/11/25 18:46> Miscellaneous Procedure Procedure Performed: Ultrasound-guided peripheral IV placement due to multiple a not ultrasound- guided ttempts that were unsuccessful Tourniquet was placed on the right upper extremity. Basilic vein was identified and is easily compressible. Area was cleaned with alcohol prep. Via ultrasound guidance, a 20-gauge IV catheter was placed in the right basilic vein. Patient tolerated procedure well. Secured with Tegaderm and had a positive drawback of blood and flushed easily. Critical Care <JAVIER Valles - Last Filed: 03/11/25 19:18> Critical Care Time Critical Care Time: No
--- NOTE | 2025-03-11 18:26 | ECG_ITS ---
APPROVED REPORT Exam: Resting ECG HR:89 bpm ECG Measurements Heart Rate 89 AXES IA 128 P 78 QRSd 84 QRS 83 QT 348 T 66 QTc 394 Conclusion SINUS RHYTHM POSSIBLE RIGHT VENTRICULAR CONDUCTION DELAY [RSR (QR) IN V1/V2] BORDERLINE ECG UNCONFIRMED REPORT Normal sinus rhythm. No ST elevation or depression. Electronically signed by : NIECY BRISCOE, 03/12/2025 00:27:09
[2025-03-11 18:50] LABS: Microscopic, Urine URINE MICROSCOPIC (MICROSCOPIC)
[2025-03-11 19:11] LABS: Amphetamine/Metha Screen,Urine Negative ng/ml (<1000)
[2025-03-11 19:12] LABS: Barbiturates Screen,Urine Negative ng/ml (<200)
[2025-03-11 19:13] LABS: Benzodiazepines Screen,Urine Negative ng/ml (<200)
[2025-03-11 19:14] LABS: Methadone Screen,Urine Negative ng/ml (<300)
[2025-03-11 19:15] LABS: Opiate Screen,Urine Negative ng/ml (<300)
[2025-03-11 19:16] LABS: Phencyclidine Screen,Urine Negative ng/ml (<25)
[2025-03-11 19:21] VITALS: BP 000/00; PULSE 0; RESP 0; TEMP -17.7; TEMP 0; O2SAT 0
[2025-03-11 19:23] LABS: Bilirubin,Urine Negative (Negative); Color,Urine YELLOW (Yellow); Glucose,Urine (UA) Negative (Negative); Ketones,Urine Negative (Negative); Leukocyte Esterase,Urine Negative (Negative); PH,Urine 6.0 (5.0-8.5); Protein,Urine Negative (Negative); Specific Gravity, Urine 1.020 (1.005-1.030); Urobilinogen,Urine 0.2 EU/dl (0.2)
[2025-03-11 19:30] LABS: Bacteria,Urine Trace /lpf; WBC,Urine Occasional #/hpf (0-3)
== END 2025-03-11 19:24 | disposition left against medical advice (07) ==
PROVIDERS: Physician Assistant; Emergency Provider Student in an Organized Health Care Education/Training Program; PCP Family Medicine
DX: R63.8 Other symptoms and signs concerning food and fluid intake (principal); R11.0 Nausea; F17.210 Nicotine dependence, cigarettes, uncomplicated; F12.90 Cannabis use, unspecified, uncomplicated; F19.11 Other psychoactive substance abuse, in remission
CPT/HCPCS: 80307; 81001; 93005; 99283

== ENCOUNTER 2025-03-24 10:16 | Emergency (ER) | payer SELFPAY ==
[2025-03-24 10:21] VITALS: BP 129/92; PULSE 105; RESP 20; TEMP 36.6; O2SAT 99; BMI 19.5
--- NOTE | 2025-03-24 10:50 | PC.NURSE ---
Dr De Luna @ bedside speaking w/ pt
--- NOTE | 2025-03-24 10:58 | CT_ITS ---
PROCEDURE INFORMATION: Exam: CT Head Without Contrast Exam date and time: 03/24/2025 11:12 AM Age: 44 years old Clinical indication: Pain; Other: Auditory and visual hallucinations, headaches TECHNIQUE: Imaging protocol: Computed tomography of the head without contrast. Radiation optimization: All CT scans at this facility use at least one of these dose optimization techniques: automated exposure control; mA and/or kV adjustment per patient size (includes targeted exams where dose is matched to clinical indication); or iterative reconstruction. COMPARISON: No relevant prior studies available. FINDINGS: Brain: No acute infarct, hemorrhage, mass, or mass effect. Cerebral ventricles: Normal ventricles. No appreciable extra-axial fluid. Paranasal sinuses: Clear. Mastoid air cells: Clear. Orbital cavities: Orbits are unremarkable. Sella is unremarkable. Bones: Unremarkable. Soft tissues: Unremarkable. IMPRESSION: No acute intracranial abnormality.
--- NOTE | 2025-03-24 10:58 | XR_ITS ---
PROCEDURE INFORMATION: Exam: XR Chest Exam date and time: 03/24/2025 11:05 AM Age: 44 years old Clinical indication: Pain; Other: Cp; Additional info: Intermittent chest pain TECHNIQUE: Imaging protocol: Radiologic exam of the chest. Views: 1 view. COMPARISON: CT ABDOMEN PELVIS WO CON 12/28/2024 2:31 PM FINDINGS: Lungs: Lungs are hyperinflated but clear. Pleural spaces: No pneumothorax or pleural effusion. Heart/Mediastinum: Cardiomediastinal silhouette is unremarkable. Bones/joints: No acute osseous or soft tissue abnormality. IMPRESSION: 1. No acute cardiopulmonary abnormality. 2. Lungs are hyperinflated but clear.
--- NOTE | 2025-03-24 11:05 | ED_ITS ---
Discharge Plan Disposition Patient Disposition: Home, Self-Care Prescriptions Prescriptions: No Action buprenorphine-naloxone 8-2 mg tablet, sublingual 1 tab sublingual DAILY Referrals Follow up/Referrals: Amber Cotton APRN [Nurse Practitioner, Behavioral Health] - See instructions Provider,Referral, [Primary Care Provider, Medical] - See instructions Activity Restrictions/Add. Instructions Additional Instructions/Restrictions: You are being referred to our behavioral health team. I do encourage you to call the number provided to you tomorrow to schedule an appointment. If you develop any new or worsening symptoms, such as thoughts of wanting to harm yourself or harm other people, or if you become concerned for your health/safety for any reason, return to the emergency department for evaluation. Clinical Impressions Clinical Impression: Auditory hallucinations Print Language Print Language: Mongolian Discharge ED Provider: Freddy De Luna General Adult HPI General Chief complaint: Psychiatric Symptoms Stated complaint: trouble eating,chills, all over pain Time Seen by Provider: 03/24/25 10:27 Mode of Arrival: Ambulatory Source of Information: Patient Description of Symptoms (Recalled from ER Triage Doc. by RN): Pt reports difficulty eating w/ generalized pain all over. Pt states she has been in recovery since Feb 2022 and starting this summer she has began hearing voices that state they are wanting to kill her , she believes this is related to devil jewish and witchcraft . She comes to the ED today for concerns of the voices and her inability to gain weight r/t to these issues she is currently having. History of Present Illness HPI narrative: Ella John is a 44y female with a past medical history of substance abuse in recovery and on Suboxone who presents to the emergency department for complaints of hearing voices as well as decreased appetite and not gaining weight. Patient states that when she used to take methamphetamine, she would hear voices, however after going through her recovery, she had not heard any of these voices. This was 2 to 3 years ago. She states that starting again this summer, the voices came back. She states that they are voices of people she knows and they often tell her that they have stolen her identity or have taken her inheritance. They are often telling her that she needs to quit her job or leave the state. She states that oftentimes she will hear them at a distance and often times at night. She states that she is not using any recreational drugs. She states that she has never been evaluated by psychiatrist or behavioral health specialist. She reports intermittently she will have chest pain and feel that her heart is racing. She states that ever since being off the drugs, she feels like she should be gaining weight but does not have much of an appetite and does not feel she is gaining enough weight. She states that she has wanted to come to the emergency department to discuss these findings but has been hesitant to do so but is becoming increasingly more distressing to her. She denies any suicidal ideation or homicidal ideation. She states that when the voices initially occurred this summer, when she closed her eyes, she could see things but has not seen those in some time. She believes that somebody has either position with a demon or is performing witchcraft on her. Related Data Home Medications ?Medication ?Instructions ?Recorded ?Confirmed buprenorphine 8 mg-naloxone 2 mg 1 tab sublingual DAYANNA Y 01/25/23 03/24/25 sublingual tablet Allergies Allergy/AdvReac Type Severity Reaction Status Date / Time No Known Allergies Allergy Verified 12/28/24 13:48 [facility] Disclaimer: The information contained in this section may have been updated after the patient was seen, as this information can be updated by other users. Medical History (Updated 03/24/25 @ 12:25 by Freddy De Luna MD) No significant past medical history History of hepatitis C Substance abuse Family History (Updated 03/24/25 @ 10:54 by Mandy Monreal RN) Other No significant family history Social History (Updated 03/24/25 @ 10:54 by Mandy Monreal RN) Smoking Status: Current every day smoker alcohol intake: never substance use type: former substance user, heroin, amphetamines, opiates and methamphetamine current occupational status: employed and unemployed Travel in the last 8 weeks?: None Have you lived/traveled outside [place] in past 30 days?: No Contact w/someone who lives/traveled outside [place] past 30 days?: No Exposure to someone with infectious disease in past 14 days?: No Do you have a fever (greater than 100.4 F or 38 C)?: No Have you tested positive for COVID-19?: No Exposed to someone with COVID-19 in past 14 days?: No Do you have a sore throat?: No Do you have a cough?: No Do you have any weakness?: Yes Do you have any diarrhea?: No Are you experiencing any unusual bleeding?: No Do you have any muscle aches/pain?: Yes Do you have any abdominal pain?: No Are you experiencing loss of taste or smell?: No Other Medical History Have you received the Flu Vaccine for this season: No Have you received the Pneumonia Vaccine: No ROS Obtained: Yes Systems reviewed as appropriate & no additional complaints except as documented Physical Exam General General appearance: alert, in no apparent distress and anxious Head Head exam: atraumatic Eye Eye exam: Present normal appearance ENT ENT exam: Present normal external ear exam Neck Neck exam: Present full ROM Chest Chest inspection: Present symmetric chest wall rise Respiratory Respiratory exam: Present normal lung sounds bilaterally; Absent respiratory distress Cardiovascular Cardiovascular exam: Present regular rate and normal rhythm Abdominal Exam Abdominal exam: Present soft; Absent tenderness or guarding Extremities Exam Extremities exam: Present normal inspection Back Exam Back exam: Present normal inspection Neurological Exam Neurological exam: Present alert and oriented X3 Psychiatric Psychiatric exam: Present normal affect and anxious; Absent homicidal ideation or suicidal ideation Skin Skin exam: Present warm and dry Medical Decision Making Medical Records Screening: Per USPSTF and CDC recommendations, given the prevalence of disease in our region, it is our hospital?s policy to screen for HIV and viral Hepatitis for all patients aged 18 and over and those with ongoing risk factors. Alexis Inquiry Pt receiving controlled substance: No Vital Signs: 03/24/25 10:21 Temperature 97.9 F Temperature Source Oral Pulse Rate [Apical] 105 H Respiratory Rate 20 Blood Pressure [Left Arm] 129/92 H Blood Pressure Mean [Left Arm] 104 Blood Pressure Source [Left Arm] Automatic Cuff Blood Pressure Position [Left Arm] Supine 02 Sat by Pulse Oximetry 99 Oxygen Delivery Method Room Air Lab Data Lab Results 03/24/25 10:20: Urine Color Yellow, Urine Appearance Clear, Urine pH 6.0, Ur Specific [place] 1.015, Urine Protein Negative, Urine Glucose (UA) Negative, Urine Ketones Negative, Urine Blood Negative, Urine Nitrate Negative, Urine Bilirubin Negative, Urine Urobilinogen 0.2, Ur Leukocyte Esterase 1+ A, Urine RBC None, Urine WBC 5-10, Ur Squamous Epith Cells 3-5, Urine Bacteria 3+, Urine Opiates Screen Negative, Urine Methadone Screen Negative, Ur Barbituates Screen Negative, Ur Phencyclidine Scrn Negative, Ur Amphetamines Screen Negative, U Benzodiazepines Scrn Negative, Urine Cocaine Screen Negative, U Marijuana (THC) Screen Positive H 03/24/25 10:34: WBC 7.5, RBC 5.16, Hgb 16.2, Hct 47.2 H, MCV 91.5, MCH 31.4 H, MCHC 34.3, RDW 12.4, Plt Count 184, MPV 12.2 H, Neut % (Auto) 63.4, Lymph % (Auto) 27.1, [place] % (Auto) 6.6, Eos % (Auto) 1.7, Baso % (Auto) 0.9, Neut # (Auto) 4.7, Lymph # (Auto) 2.0, [place] # (Auto) 0.5, Eos # (Auto) 0.1, Baso # (Auto) 0.1 03/24/25 10:39: Free T4 1.42 03/24/25 11:35: Sodium 140, Potassium 4.5, Chloride 110 H, Carbon Dioxide 23, Anion Gap 11.5, BUN 9, Creatinine 0.60, Estimated Creat Clear 96, Estimated GFR 110, Est GFR ( Amer) 133, Glucose 83, Calcium 9.6, Phosphorus 2.9, Magnesium 1.8, Total Bilirubin 0.9, AST 42 H, ALT 17, Alkaline Phosphatase 50, Troponin I < 0.01, Total Protein 8.1, Albumin 4.6, Globulin 3.5 H, Albumin/Globulin Ratio 1.3, TSH 0.59 03/24/25 10:34 03/24/25 11:35 Orders (Tests/Meds): ORDERS Category Date Time Status CT head/brain wo con Stat Cat Scan 03/24/25 10:58 Completed CXR --portable [XR chest portable] Stat Exams 03/24/25 10:58 Completed CBC w/Auto Diff [Complete Blood Count Auto Diff] Stat Lab 03/24/25 10:34 Completed CMP [Comprehensive Metabolic Panel] Stat Lab 03/24/25 11:35 Completed Free T4 (Free Thyroxine) Stat Lab 03/24/25 10:39 Completed Magnesium Stat Lab 03/24/25 11:35 Completed PT INR [Prothrombin Time INR] Stat Lab 03/24/25 10:58 Ordered PTT [Activated Partial Thrombo Time] Stat Lab 03/24/25 10:58 Ordered Phosphorous Stat Lab 03/24/25 11:35 Completed TSH [Thyroid Stimulating Hormone] Stat Lab 03/24/25 11:35 Completed Troponin I Q3H Lab 03/24/25 14:00 Ordered Troponin I Q3H Lab 03/24/25 17:00 Ordered Troponin I Stat Lab 03/24/25 11:35 Completed UA [Urinalysis and Microscopic] Stat Lab 03/24/25 10:20 Completed UDS [Drug Screen,Urine] Stat Lab 03/24/25 10:20 Completed Urine Culture Stat Micro 03/24/25 10:20 Received EKG Request [ECG Request] Stat Y 03/24/25 10:58 Ordered Medical Decision Narrative: Ella John is a 44y female with a past medical history of substance abuse in recovery and on Suboxone who presents to the emergency department for complaints of hearing voices as well as decreased appetite and not gaining weight. Patient states that when she used to take methamphetamine, she would hear voices, however after going through her recovery, she had not heard any of these voices. This was 2 to 3 years ago. She states that starting again this summer, the voices came back. She states that they are voices of people she knows and they often tell her that they have stolen her identity or have taken her inheritance. They are often telling her that she needs to quit her job or leave the state. She states that oftentimes she will hear them at a distance and often times at night. She states that she is not using any recreational drugs. She states that she has never been evaluated by psychiatrist or behavioral health specialist. She reports intermittently she will have chest pain and feel that her heart is racing. She states that ever since being off the drugs, she feels like she should be gaining weight but does not have much of an appetite and does not feel she is gaining enough weight. She states that she has wanted to come to the emergency department to discuss these findings but has been hesitant to do so but is becoming increasingly more distressing to her. She denies any suicidal ideation or homicidal ideation. She states that when the voices initially occurred this summer, when she closed her eyes, she could see things but has not seen those in some time. She believes that somebody has either position with a demon or is performing witchcraft on her. On arrival, patient is normotensive, mildly tachycardic with a heart rate of 105 bpm, afebrile, oxygen saturation 99% on room air. Physical exam, as stated above, revealed an overall well but anxious. Female in no distress. She does not appear to be responding to internal stimuli. She denies any suicidal or homicidal ideation. Cardiopulmonary exam is unremarkable. Abdomen soft, nontender nondistended. Physical exam is grossly unremarkable otherwise Differential diagnosis includes, but is not limited to: Electrolyte derangement, metabolic derangement, schizophrenia, ACS, hypothyroidism, substance use, acute psychosis, intracranial mass, among others. The most morbid conditions were considered and workup was based on these. Workup in the emergency department included: Chest x-ray, EKG, CT head without contrast, CBC with differential, CMP, phosphorus level, magnesium level, troponin, TSH/free T4, urinalysis, UDS, EKG EKG without evidence of ischemia. See interpretation above Laboratory workup is grossly unremarkable nonactionable with normal electrolytes, CBC unremarkable, phosphorus and magnesium within normal limits. AST is mildly elevated at 42 but otherwise liver enzymes within normal limits. Initial troponin less than 0.01. Urinalysis shows 1+ leukocyte Estrace and 3+ bacteria and 5-10 white blood cells, however patient is not having any urinary symptoms and she is nitrite negative Given this, so that urinary tract infection is unlikely and would not benefit from antibiotics. Her UDS is positive for marijuana. Patient states that she last smoked marijuana approximately 1 month ago. On reassessment, patient is remained in stable condition. I did advise patient to avoid marijuana use as that can exacerbate her symptoms. I am giving patient referral to behavioral health specialist and encouraged her to call them tomorrow to schedule an appointment. I did give strict return precautions for any thoughts of self-harm or harm to others, or if she became concerned for her health for any reason. All questions were answered. She demonstrated understanding and was in agreement this plan. She was then discharged from the emergency department in stable condition Critical Care Critical Care Time Critical Care Time: No
[2025-03-24 11:07] LABS: Microscopic, Urine URINE MICROSCOPIC (MICROSCOPIC)
[2025-03-24 11:16] LABS: Hematocrit 47.2 % (37.0-47.0); Hemoglobin 16.2 g/dL (12.2-16.2); Immature Granulocytes % 0.3 %; Mean Corpuscular HGB Conc 34.3 g/dL (31.8-35.4); Mean Corpuscular Hemoglobin 31.4 pg (27.0-31.2); Mean Corpuscular Volume 91.5 fl (81-99); Nucleated Red Blood Cells % 0 %; Platelet Count 184 K/mm3 (142-424); Red Blood Count 5.16 M/mm3 (4.20-5.40); Red Cell Distribution Width-SD 41.5 fL; White Blood Count 7.5 K/mm3 (4.8-10.8)
--- NOTE | 2025-03-24 11:20 | ECG_ITS ---
APPROVED REPORT Exam: Resting ECG HR:88 bpm ECG Measurements Heart Rate 88 AXES SC 129 P 73 QRSd 77 QRS 85 QT 337 T 70 QTc 383 Conclusion SINUS RHYTHM NORMAL ECG UNCONFIRMED REPORT Normal sinus rhythm. No ST elevation or depression. Electronically signed by : NIECY BRISCOE, 03/25/2025 15:37:03
[2025-03-24 11:25] LABS: Bilirubin,Urine Negative (Negative); Color,Urine YELLOW (Yellow); Glucose,Urine (UA) Negative (Negative); Ketones,Urine Negative (Negative); Leukocyte Esterase,Urine 1+ (Negative); PH,Urine 6.0 (5.0-8.5); Protein,Urine Negative (Negative); Specific Gravity, Urine 1.015 (1.005-1.030); Urobilinogen,Urine 0.2 EU/dl (0.2)
[2025-03-24 11:35] LABS: Bacteria,Urine 3+ /lpf
[2025-03-24 11:37] LABS: Amphetamine/Metha Screen,Urine Negative ng/ml (<1000)
[2025-03-24 11:38] LABS: Barbiturates Screen,Urine Negative ng/ml (<200)
[2025-03-24 11:39] LABS: Benzodiazepines Screen,Urine Negative ng/ml (<200)
[2025-03-24 11:40] LABS: Methadone Screen,Urine Negative ng/ml (<300)
[2025-03-24 11:41] LABS: Opiate Screen,Urine Negative ng/ml (<300)
[2025-03-24 11:42] LABS: Phencyclidine Screen,Urine Negative ng/ml (<25)
[2025-03-24 11:45] LABS: Free T4 (Free Thyroxine) 1.42 ng/dl (0.78-2.19)
[2025-03-24 11:49] LABS: Albumin Level 4.6 g/dl (3.5-5.0); Chloride 110 mmol/L (98-107); Potassium 4.5 mmoL/L (3.5-5.1); Sodium 140 mmol/L (136-145)
[2025-03-24 11:51] LABS: Alanine Aminotransferase 17 U/L (12-78); Aspartate Amino Transferase 42 U/L (14-36); Blood Urea Nitrogen 9 mg/dl (7-17); Creatinine Clearance Estimated 96 mL/min (50-200); Creatinine,Serum 0.60 mg/dl (0.52-1.04); Estimated Glomerular Filt Rate 110 ml/min (>60); GFR (African American) 133 ML/MIN (>60)
[2025-03-24 11:52] LABS: Albumin/Globulin Ratio 1.3 (1.1-1.8); Alkaline Phosphatase 50 U/L (38-126); Anion Gap 11.5 mEq/L (5-15); Bilirubin,Total 0.9 mg/dl (0.2-1.3); Calcium 9.6 mg/dl (8.4-10.2); Carbon Dioxide 23 mmol/L (22.0-30.0); Globulin 3.5 g/dL (1.3-3.2); Glucose 83 mg/dl (74-100); Magnesium 1.8 mg/dl (1.6-2.3); Phosphorous 2.9 mg/dl (2.5-4.5); Total Protein,Serum 8.1 g/dl (6.3-8.2)
[2025-03-24 12:05] LABS: Troponin I < 0.01 ng/ml (0.00-0.034)
--- NOTE | 2025-03-24 12:22 | PC.NURSE ---
Dr. De Luna @ bedside updating pt on POC
[2025-03-24 12:23] LABS: Thyroid Stimulating Hormone 0.59 uIU/mL (0.465-4.68)
[2025-03-24 12:33] VITALS: BP 129/86; PULSE 102; RESP 18; TEMP 36.6; O2SAT 99
--- NOTE | 2025-03-27 17:30 | PC.NURSE ---
URINE CULTURE DISCUSSED WITH DR CHRISTIE. RX FOR BACTRIM SENT TO PHARMACY. ATTEMPTED TO CALL PT, UNABLE TO LEAVE MESSAGE.
== END 2025-03-24 12:33 | disposition home or self-care (01) ==
PROVIDERS: Emergency Provider Student in an Organized Health Care Education/Training Program
DX: R44.0 Auditory hallucinations (principal); N39.0 Urinary tract infection, site not specified; R63.8 Other symptoms and signs concerning food and fluid intake; F17.210 Nicotine dependence, cigarettes, uncomplicated; F19.11 Other psychoactive substance abuse, in remission
CPT/HCPCS: 70450; 71045; 80053; 80307; 81001; 83735; 84100; 84439; 84443; 84484; 85025; 87086; 87088; 87186; 93005; 99284; 99285

== ENCOUNTER 2025-04-22 14:30 | Outpatient (CLI) | payer OTHER, SELFPAY ==
[2025-04-22 20:39] LABS: Hematocrit 40.3 % (37.0-47.0); Hemoglobin 13.5 g/dL (12.2-16.2); Immature Granulocytes % 0.3 %; Mean Corpuscular HGB Conc 33.5 g/dL (31.8-35.4); Mean Corpuscular Hemoglobin 31.5 pg (27.0-31.2); Mean Corpuscular Volume 94.2 fl (81-99); Nucleated Red Blood Cells % 0 %; Platelet Count 210 K/mm3 (142-424); Red Blood Count 4.28 M/mm3 (4.20-5.40); Red Cell Distribution Width-SD 43.8 fL; White Blood Count 7.0 K/mm3 (4.8-10.8)
[2025-04-22 20:54] LABS: Albumin Level 3.8 g/dl (3.5-5.0); Chloride 103 mmol/L (98-107); Sodium 136 mmol/L (136-145)
[2025-04-22 20:55] LABS: Potassium 4.6 mmoL/L (3.5-5.1)
[2025-04-22 20:57] LABS: Alanine Aminotransferase 14 U/L (12-78); Albumin/Globulin Ratio 1.2 (1.1-1.8); Alkaline Phosphatase 63 U/L (38-126); Anion Gap 10.6 mEq/L (5-15); Aspartate Amino Transferase 29 U/L (14-36); Bilirubin,Total 0.5 mg/dl (0.2-1.3); Carbon Dioxide 27 mmol/L (22.0-30.0); Globulin 3.2 g/dL (1.3-3.2); Total Protein,Serum 7.0 g/dl (6.3-8.2)
[2025-04-22 20:58] LABS: Calcium 9.1 mg/dl (8.4-10.2); Glucose 78 mg/dl (74-100)
[2025-04-22 21:22] LABS: Blood Urea Nitrogen 9 mg/dl (7-17); Creatinine,Serum 0.70 mg/dl (0.52-1.04); Estimated Glomerular Filt Rate 92 ml/min (>60); GFR (African American) 111 ML/MIN (>60)
== END 2025-04-22 23:59 | disposition home or self-care (01) ==
LOC: RT 14:38
PROVIDERS: PCP Family Medicine; Visit Provider Family Medicine
DX: I49.1 Atrial premature depolarization (principal); I47.19 Other supraventricular tachycardia; I49.3 Ventricular premature depolarization; R39.9 Unspecified symptoms and signs involving the genitourinary system
CPT/HCPCS: 80053; 85025; 87086; 93270

== ENCOUNTER 2025-07-10 16:12 | Emergency (ER) | payer OTHER, SELFPAY ==
[2025-07-10 16:18] VITALS: BP 144/95; PULSE 118; O2SAT 96
--- NOTE | 2025-07-10 16:18 | PC.NURSE ---
UA sent to lab
--- NOTE | 2025-07-10 16:19 | HMH.EDGENADL ---
Discharge Plan Disposition Patient Disposition: Home, Self-Care Condition: Good Prescriptions Prescriptions: No Action aripiprazole [Abilify] 5 mg tablet 5 mg PO DAILY hydroxyzine pamoate [Vistaril] 25 mg capsule 25 mg PO BID PRN (Reason: anxiety) Qty: 60 0RF buprenorphine-naloxone 8-2 mg tablet, sublingual 1.5 tab sublingual DAILY nicotine 21 mg/24 hr patch 24 hour transdermal Patient Comments: APPLY ONE PATCH TO SKIN EVERY DAY REMOVE OLD PATCH BEFORE APPLYING NEW PATCH metoprolol succinate 25 mg tablet extended release 24 hr 12.5 mg PO DAILY Qty: 30 2RF Referrals Follow up/Referrals: Behavioral Health [Provider Group, Behavioral Health] - See instructions Blossom Bills APRN [Primary Care Provider, Family Practice] - See instructions Maria G Salomon APRN [Nurse Practitioner, Behavioral Health] - See instructions Activity Restrictions/Add. Instructions Additional Instructions/Restrictions: You will need to call to help schedule an appointment to be seen for your symptoms. Return to the emergency department if your hallucinations get worse, if they tell you to harm yourself or others or if you have any other acute concerns. Clinical Impressions Clinical Impression: Auditory hallucinations Print Language Print Language: [place] Citizen Discharge ED Provider: Usha Hayes General Adult HPI General Chief complaint: Psychiatric Symptoms Stated complaint: abdominal pain Time Seen by Provider: 07/10/25 16:17 History of Present Illness HPI narrative: Patient is a 44-year-old female with a past medical history of marijuana use who presents to the emergency department with concern for auditory hallucinations. Patient states that she has been having auditory hallucinations since the summer. Patient states that she has not been seen for these in the past. States that the voices are people that she knows and they are intermittent in nature. Patient states that the voices never tell her to harm herself or others. Patient initially had complained of abdominal pain but patient states that she felt like something was moving in her abdomen and this has since resolved. Patient denies abdominal pain at this time. Patient denies any vomiting diarrhea or urinary symptoms. Patient denies any recent trauma. Patient states that she takes daily Suboxone but denies any other drug use. Patient denies any upper respiratory symptoms including cough congestion chest pain or shortness of breath however patient does report some intermittent palpitations. Related Data Home Medications ?Medication ?Instructions ?Recorded ?Confirmed aripiprazole 5 mg tablet (Abilify) 5 mg PO DAILY 04/22/25 06/17/25 buprenorphine 8 mg-naloxone 2 mg 1.5 tab sublingual DAILY 04/22/25 06/17/25 sublingual tablet nicotine 21 mg/24 hr daily transdermal 05/13/25 06/17/25 transdermal patch Previous Rx's ?Medication ?Instructions ?Recorded hydroxyzine pamoate 25 mg capsule 25 mg PO BID PRN anxiety #60 caps 04/22/25 (Vistaril) metoprolol succinate 25 mg 12.5 mg (1/2 x 25 mg) PO DAILY #30 06/17/25 tablet,extended release 24 hr tabs Allergies Allergy/AdvReac Type Severity Reaction Status Date / Time No Known Allergies Allergy Verified 06/17/25 14:30 [facility] Disclaimer: The information contained in this section may have been updated after the patient was seen, as this information can be updated by other users. Medical History No significant past medical history History of hepatitis C Substance abuse Family History Other No significant family history Social History Smoking Status: Current every day smoker alcohol intake: never substance use type: former substance user, heroin, amphetamines, opiates and methamphetamine current occupational status: employed and unemployed Travel in the last 8 weeks?: None Have you lived/traveled outside [place] in past 30 days?: No Contact w/someone who lives/traveled outside US past 30 days?: No Exposure to someone with infectious disease in past 14 days?: No Do you have a fever (greater than 100.4 F or 38 C)?: No Have you tested positive for COVID-19?: No Exposed to someone with COVID-19 in past 14 days?: No Do you have a sore throat?: No Do you have a cough?: No Do you have any weakness?: No Do you have any diarrhea?: No Are you experiencing any unusual bleeding?: No Do you have any muscle aches/pain?: No Do you have any abdominal pain?: No Are you experiencing loss of taste or smell?: No Other Medical History Have you received the Flu Vaccine for this season: No Have you received the Pneumonia Vaccine: No ROS Obtained: Yes All systems reviewed & no additional complaints except as documented and Yes Systems reviewed as appropriate & no additional complaints except as documented Physical Exam General General appearance: alert and in no apparent distress Head Head exam: atraumatic, normocephalic and normal inspection Eye Eye exam: Present normal appearance, PERRL and EOMI; Absent scleral icterus ENT ENT exam: Present normal exam and normal external ear exam Neck Neck exam: Present normal inspection and full ROM Chest Chest inspection: Present normal inspection and symmetric chest wall rise Respiratory Respiratory exam: Present normal lung sounds bilaterally; Absent respiratory distress or wheezes Cardiovascular Cardiovascular exam: Present regular rate, normal rhythm and normal heart sounds Abdominal Exam Abdominal exam: Present soft and distention; Absent tenderness, guarding or rebound Extremities Exam Extremities exam: Present normal inspection and full ROM Back Exam Back exam: Present normal inspection and full ROM Neurological Exam Neurological exam: Present alert, oriented X3 and other (Patient does not appear to be responding to internal stimuli. Patient states that the voices are not actively present. Patient does not appear to be manic, patient has logical forward thinking.) Psychiatric Psychiatric exam: Present normal affect and normal mood Skin Skin exam: Present warm and dry Medical Decision Making Medical Records Medical records reviewed: Yes I reviewed the patient's medical records. Screening: Per USPSTF and CDC recommendations, given the prevalence of disease in our region, it is our hospital?s policy to screen for HIV and viral Hepatitis for all patients aged 18 and over and those with ongoing risk factors. Alexis Inquiry Pt receiving controlled substance: No Vital Signs: 07/10/25 16:18 07/10/25 16:40 07/10/25 18:58 Temperature 98.3 F 98.2 F Temperature Source Oral Oral Pulse Rate 118 H 87 Pulse Rate [Right Radial] 117 H Respiratory Rate 20 20 Blood Pressure 144/95 H 109/83 L Blood Pressure [Right Arm] 144/85 H Blood Pressure Mean [Right Arm] 104 Blood Pressure Source Automatic Cuff Blood Pressure Source [Right Arm] Automatic Cuff Blood Pressure Position Sitting Blood Pressure Position [Right Arm] Sitting 02 Sat by Pulse Oximetry 96 98 Oxygen Delivery Method Room Air Room Air Lab Data Lab results reviewed: Yes I reviewed the patient's lab results. Lab Results 07/10/25 16:17: Urine Color Yellow, Urine Appearance Clear, Urine pH 6.0, Ur Specific [place] 1.020, Urine Protein Negative, Urine Glucose (UA) Negative, Urine Ketones Negative, Urine Blood Negative, Urine Nitrate Negative, Urine Bilirubin Negative, Urine Urobilinogen 0.2, Ur Leukocyte Esterase Negative, Urine RBC 5-10, Urine WBC 10-20, Ur Squamous Epith Cells 10-20, Urine Bacteria 2+, Urine Mucus 2+, Urine Opiates Screen Negative, Urine Methadone Screen Negative, Ur Barbituates Screen Negative, Ur Phencyclidine Scrn Negative, Ur Amphetamines Screen Negative, U Benzodiazepines Scrn Negative, Urine Cocaine Screen Negative, U Marijuana (THC) Screen Positive H 07/10/25 16:29: WBC 8.2, RBC 4.68, Hgb 14.7, Hct 42.5, MCV 90.8, MCH 31.4 H, MCHC 34.6, RDW 12.2, Plt Count 266, MPV 10.8 H, Neut % (Auto) 55.6, Lymph % (Auto) 36.1, [place] % (Auto) 5.9, Eos % (Auto) 1.3, Baso % (Auto) 0.9, Neut # (Auto) 4.6, Lymph # (Auto) 3.0, [place] # (Auto) 0.5, Eos # (Auto) 0.1, Baso # (Auto) 0.1, Sodium 134 L, Potassium 3.8, Chloride 103, Carbon Dioxide 25, Anion Gap 9.8, BUN 9, Creatinine 0.80, Estimated Creat Clear 79, Estimated GFR 79, Est GFR ( Amer) 95, Glucose 108 H, Calcium 9.2, Magnesium 1.8, Total Bilirubin 0.6, AST 38 H, ALT 16, Alkaline Phosphatase 58, Troponin I < 0.01, Total Protein 8.7 H, Albumin 5.1 H, Globulin 3.6 H, Albumin/Globulin Ratio 1.4, TSH 0.72, Free T4 1.69, Serum HCG, Qual Negative 07/10/25 16:29 07/10/25 16:29 Orders (Tests/Meds): ORDERS Category Date Time Status CT head/brain wo con Stat Cat Scan 07/10/25 16:33 Completed CBC w/Auto Diff [Complete Blood Count Auto Diff] Stat Lab 07/10/25 16:29 Completed CMP [Comprehensive Metabolic Panel] Stat Lab 07/10/25 16:29 Completed Drug Screen,Urine Stat Lab 07/10/25 16:17 Completed Free T4 (Free Thyroxine) Stat Lab 07/10/25 16:29 Completed HCG Qualitative, Serum Stat Lab 07/10/25 16:29 Completed MAG [Magnesium] Stat Lab 07/10/25 16:29 Completed TSH [Thyroid Stimulating Hormone] Stat Lab 07/10/25 16:29 Completed Trop I [Troponin I] Stat Lab 07/10/25 16:29 Completed UA [Urinalysis and Microscopic] Stat Lab 07/10/25 16:17 Completed Urine Culture Stat Micro 07/10/25 16:17 Received EKG Request [ECG Request] Stat Y 07/10/25 16:54 Ordered Medical Decision Narrative: Patient is a 44-year-old female with no significant past medical history reportedly has been having auditory hallucinations since December and was seen in the past for these as well. Patient initially complaining of abdominal pain which has since resolved and here for her hallucinations at this time. On arrival, patient was tachycardic but vital signs were otherwise unremarkable. Differential includes but not limited to: Intracranial tumor, infection, drug use, psychiatric medical problem, amongst others. On exam, patient was very well-appearing, patient has not had any fever or other infectious symptoms. Patient has full range of motion of her neck. Patient's neurovascular exam was otherwise unremarkable. Patient was not responding to internal stimuli, patient had forward logical thinking. Patient did not have any SI or HI. Labs as well as CT scan of the head was obtained. Patient's labs were reviewed and interpreted by myself: CBC showed no leukocytosis, hemoglobin was stable. CMP was unremarkable. Troponin was less than 0.01. Thyroid studies were unremarkable. test was negative. Urine showed no evidence of infection. Urine drug screen was positive for marijuana. CT head was reviewed and interpreted by myself and showed no acute pathology. Discussed with the patient that I would like her to be evaluated by a psychiatrist at [facility] however patient wished to follow-up outpatient. Patient was not in any danger to herself or others patient was not having any SI or HI. Patient's voices were causing her significant harm and were not telling her to harm herself or others as well. Patient did not appear to be acutely manic. Patient had forward logical thinking. Therefore I did not feel that patient needed to be acutely evaluated for her hallucinations unless the patient wished to. Patient was not placed on a voluntary hold for this reason. Patient was given outpatient behavioral health referral and patient was advised to call them or return to the emergency department for any acute or worsening symptoms. At this time, patient was discharged home in stable condition return precautions were discussed. Critical Care Critical Care Time Critical Care Time: No
[2025-07-10 16:26] LABS: Microscopic, Urine URINE MICROSCOPIC (MICROSCOPIC)
[2025-07-10 16:29] LABS: Bilirubin,Urine Negative (Negative); Color,Urine YELLOW (Yellow); Glucose,Urine (UA) Negative (Negative); Ketones,Urine Negative (Negative); Leukocyte Esterase,Urine Negative (Negative); PH,Urine 6.0 (5.0-8.5); Protein,Urine Negative (Negative); Specific Gravity, Urine 1.020 (1.005-1.030); Urobilinogen,Urine 0.2 EU/dl (0.2)
--- NOTE | 2025-07-10 16:33 | CT_ITS ---
PROCEDURE INFORMATION: Exam: CT Head Without Contrast Exam date and time: 07/10/2025 5:39 PM Age: 44 years old Clinical indication: Altered mental status/memory loss; Additional info: Hallucinations TECHNIQUE: Imaging protocol: Computed tomography of the head without contrast. Radiation optimization: All CT scans at this facility use at least one of these dose optimization techniques: automated exposure control; mA and/or kV adjustment per patient size (includes targeted exams where dose is matched to clinical indication); or iterative reconstruction. COMPARISON: CT HEAD/BRAIN WO CON 03/24/2025 11:12 AM FINDINGS: Limitations: streak artifact limits evaluation of the posterior fossa. Brain: No acute hemorrhage, edema, or mass effect. Cerebral ventricles: No hydrocephalus. Paranasal sinuses: Minimal right ethmoid sinus mucosal thickening. The remaining paranasal sinuses are clear. Mastoid air cells: Visualized mastoid air cells are well aerated. Bones: Unremarkable. No acute fracture. Soft tissues: Unremarkable. IMPRESSION: No acute hemorrhage, edema, or mass effect.
[2025-07-10 16:40] VITALS: BP 144/85; PULSE 117; RESP 20; TEMP 36.8; O2SAT 98; BMI 20.5
[2025-07-10 16:43] LABS: Hematocrit 42.5 % (37.0-47.0); Hemoglobin 14.7 g/dL (12.2-16.2); Immature Granulocytes % 0.2 %; Mean Corpuscular HGB Conc 34.6 g/dL (31.8-35.4); Mean Corpuscular Hemoglobin 31.4 pg (27.0-31.2); Mean Corpuscular Volume 90.8 fl (81-99); Nucleated Red Blood Cells % 0 %; Platelet Count 266 K/mm3 (142-424); Red Blood Count 4.68 M/mm3 (4.20-5.40); Red Cell Distribution Width-SD 40.3 fL; White Blood Count 8.2 K/mm3 (4.8-10.8)
[2025-07-10 16:51] LABS: Bacteria,Urine 2+ /lpf; Mucus,Urine 2+ /lpf
[2025-07-10 16:53] LABS: Albumin Level 5.1 g/dl (3.5-5.0); Chloride 103 mmol/L (98-107); Potassium 3.8 mmoL/L (3.5-5.1); Sodium 134 mmol/L (136-145)
[2025-07-10 16:56] LABS: Alanine Aminotransferase 16 U/L (12-78); Albumin/Globulin Ratio 1.4 (1.1-1.8); Alkaline Phosphatase 58 U/L (38-126); Anion Gap 9.8 mEq/L (5-15); Aspartate Amino Transferase 38 U/L (14-36); Bilirubin,Total 0.6 mg/dl (0.2-1.3); Blood Urea Nitrogen 9 mg/dl (7-17); Calcium 9.2 mg/dl (8.4-10.2); Carbon Dioxide 25 mmol/L (22.0-30.0); Creatinine Clearance Estimated 79 mL/min (50-200); Creatinine,Serum 0.80 mg/dl (0.52-1.04); Estimated Glomerular Filt Rate 79 ml/min (>60); GFR (African American) 95 ML/MIN (>60); Globulin 3.6 g/dL (1.3-3.2); Glucose 108 mg/dl (74-100); Total Protein,Serum 8.7 g/dl (6.3-8.2)
[2025-07-10 16:57] LABS: Magnesium 1.8 mg/dl (1.6-2.3)
--- NOTE | 2025-07-10 17:01 | ECG_ITS ---
APPROVED REPORT Exam: Resting ECG HR:81 bpm ECG Measurements Heart Rate 81 AXES AL 136 P 76 QRSd 78 QRS 86 QT 359 T 70 QTc 396 Conclusion Sinus rhythm without acute ST or T wave changes concerning for ischemia Electronically signed by : Usha Hayes, 07/11/2025 00:52:25
[2025-07-10 17:28] LABS: Troponin I < 0.01 ng/ml (0.00-0.034)
[2025-07-10 17:35] LABS: HCG Qualitative, Serum Negative (Negative)
[2025-07-10 17:41] LABS: Thyroid Stimulating Hormone 0.72 uIU/mL (0.465-4.68)
[2025-07-10 17:52] LABS: Barbiturates Screen,Urine Negative ng/ml (<200); Opiate Screen,Urine Negative ng/ml (<300); Phencyclidine Screen,Urine Negative ng/ml (<25)
[2025-07-10 17:53] LABS: Amphetamine/Metha Screen,Urine Negative ng/ml (<1000)
[2025-07-10 17:55] LABS: Free T4 (Free Thyroxine) 1.69 ng/dl (0.78-2.19)
[2025-07-10 18:09] LABS: Benzodiazepines Screen,Urine Negative ng/ml (<200)
[2025-07-10 18:31] LABS: Methadone Screen,Urine Negative ng/ml (<300)
[2025-07-10 18:58] VITALS: BP 109/83; PULSE 87; RESP 20; TEMP 36.8; O2SAT 98
== END 2025-07-10 18:58 | disposition home or self-care (01) ==
PROVIDERS: Emergency Provider Student in an Organized Health Care Education/Training Program; PCP Family Medicine
DX: R44.0 Auditory hallucinations (principal); F17.210 Nicotine dependence, cigarettes, uncomplicated
CPT/HCPCS: 70450; 80053; 80307; 81001; 83735; 84439; 84443; 84484; 84703; 85025; 87086; 93005; 99284